=== PATIENT | male | born 1950 | race Caucasian/White ===

== ENCOUNTER 2016-07-22 15:47 | Emergency (ER) | payer MEDICARE, OTHER ==
[~2016-07-22 15:47] MED LIST: Nitroglycerin 0.4 MG TAB 1 EACH ONE; Sodium Chloride 0.9% 1,000 ML BAG ONE
[2016-07-22] MEDS ORDERED: Nitroglycerin 0.4 MG TAB 1 EACH ONE (15:57)
[2016-07-22 16:12] LABS: #Basophils 0.1 thou/uL (0.0-0.2); #Eosinphils 0.3 thou/uL (0.0-0.7); #Lymphocytes 2.5 thou/uL (1.20-3.40); #Monocytes 0.5 thou/uL (0.11-0.59); #Neutrophils 3.7 thou/uL (1.40-6.50); %Basophils 1.6 % (0.0-1.0); %Eosinophils 3.6 % (0.0-10.0); %Lymphocytes 35.7 % (21.0-51.0); %Monocytes 6.7 % (0.0-10.0); %Neutrophils 52.4 % (42.0-75.0); Hemoglobin 15.7 g/dL (14.0-18.0); Mean Corpuscular HGB CONC 34.7 g/dL (32.0-36.0); Mean Corpuscular Hemoglobin 30.4 pg (27.0-31.0); Mean Corpuscular Volume 87.6 fl (80.0-94.0); Mean Platelet Volume 6.9 fL (7.4-10.4); Platelet Count 205 thou/uL (130-400); RBC Distribution Width 12.8 % (11.5-14.5); Red Blood Cell (RBC) Count 5.17 mill/uL (4.70-6.10)
[2016-07-22 16:27] LABS: ALT (SGPT) 32 U/L (0-55); AST (SGOT) 35 U/L (5-34); Albumin 4.1 g/dL (3.4-4.8); Alkaline Phosphatase 41 U/L (40-150); Anion Gap 17 mmol/L (10-20); BUN (Urea Nitrogen) 15 mg/dL (8.4-25.7); Bilirubin, Total 0.4 mg/dL (0.2-1.2); Calc. Creatinine Clearance 0 mL/min (70-130); Calcium 9.8 mg/dL (7.8-10.44); Carbon Dioxide 21 mmol/L (23-31); Chloride 100 mmol/L (98-107); Estimated GFR-MDRD 59; Globulin 2.6 g/dL (2.4-3.5); Glucose 311 mg/dL (80-115); Potassium 4.4 mmol/L (3.5-5.1); Protein, Total 6.7 g/dL (5.8-8.1); Sodium 134 mmol/L (136-145)
[2016-07-22 16:39] LABS: Troponin I Less than 0.010 ng/mL (< 0.028)
--- NOTE | 2016-07-22 16:40 | RAD ---
PORTABLE AP CHEST: Date: 07-22-16 History: Chest pain. Comparison: 10-27-14 FINDINGS: Double lead left subclavian cardiac pacemaking device remains place. Cardiac silhouette is magnifie d by projection. Pulmonary vasculature is within normal limits. The lungs are clear. There has be en no interval change from the prior exam. Remote left sided rib fracture present. IMPRESSION: No acute cardiopulmonary process. POS: [facility]
--- NOTE | 2016-07-22 17:50 | ERRECORD ---
[facility] EMERGENCY RECORD HPI CHEST PAIN (16:10 LHOD) CHIEF COMPLAINT: Patient presents for evaluation of chest pain, ongoing. HISTORIAN: History provided by patient. LOCATION: Symptoms are localized, most severe in substernal area. QUALITY: Pain is dull in nature, described as pressure-like, described as throbbing. SEVERITY: Maximum severity of symptoms severe, Currently symptoms are severe, Maximum severity of pain rated as 10/10, Current severity of pain rated as 10/10. TIME COURSE: Gradual onset of symptoms, are constant. ASSOCIATED WITH: No associated chills, No associated cough, No associated diaphoresis, No associated fever, No associated nausea, No associated palpitations, No associated shortness of breath, No associated trauma, No associated vomiting. EXACERBATED BY: Patient's condition exacerbated by nothing. RELIEVED BY: Patient's condition relieved by nothing, Patient's condition relieved by TOOK 3 NTG WITHOUT RELIEF. RISK FACTORS: Coronary artery disease risk factors, include known coronary artery disease, include diabetes. ROS (16:18 LHOD) CONSTITUTIONAL: Historian denies chills, denies fever. CARDIOVASCULAR: Historian reports chest pain, denies diaphoresis, denies palpitations. RESPIRATORY: Historian denies cough, denies shortness of breath. GI: Historian denies abdominal pain, denies nausea, denies vomiting. MUSCULOSKELETAL: Historian denies back pain, denies neck pain. SKIN: Historian denies rash. NEUROLOGIC: Historian denies focal weakness, denies headache. HEMO/LYMPHATIC: Historian reports easy bruising, ASA Q DAY--TOOK 325 MG THIS AM. NOTES: All systems reviewed, negative except as described above. PAST MEDICAL HISTORY MEDICAL HISTORY: Past medical history includes cardiac history, coronary artery disease, Treated with stent placement, Number of stents: 6, Treated with a pacemaker, Past medical history includes history of diabetes, on insulin, Past medical history includes history of malignancy, primary site prostate, treated with surgery, Past medical history includes pulmonary disease, chronic obstructive pulmonary disease. Flu vaccine up to date, Tetanus immunization up to date, Pneumococcal vaccine up to date. Notes: CAD, Past medical history includes cardiac history, Treated with stent placement, Number of stents: 6, Treated with a pacemaker, Past &a-1R&a+25V*p+0X*[id number]*c202B*c15G*c2P*p-0X&a-25V&a+1R Name: Hesham Nuñez : 1950 M65 MedRec: [id number] AcctNum: [id number] Prepared: WedJul 22, 2016 17:58 by Interface Page 1 of 5 pMD [facility] EMERGENCY RECORD medical history includes history of diabetes, on insulin, Past medical history includes neurological disease, SPINAL CVA, Past medical history includes pulmonary disease, chronic obstructive pulmonary disease. (16:03 CJEF) MALE SURGICAL HISTORY: Surgical history of cholecystectomy, Surgical history of hernia repair, Surgical history of spinal surgery. PROSTATE CA LENS REPLACEMENT, Surgical history of cholecystectomy, Surgical history of hernia repair, Surgical history of spinal surgery. (16:03 CJEF) PSYCHIATRIC HISTORY: No previous psychiatric history. Notes: DENIES. (16:03 CJEF) SOCIAL HISTORY: Patient denies alcohol use, Patient denies drug use, Patient has no smoking history. Patient denies alcohol use, Patient denies drug use, Patient has no smoking history. (16:03 CJEF) NOTES: Nursing records reviewed, REPORTS PREVIOUS CARDIAC HX "I TWICE". LAST WAS APROX. 4-5 YEARS AGO. SEES . REPORTS WAS SUPPOSE TO SEE LAST WEEK, BUT RESCHEDULED. PT REPORTS HIS NTG MIGHT BE OLD. (16:25 LHOD) KNOWN ALLERGIES Demerol Injection: - BECOMES VERY AGGRESSIVE Iodides iodine (Unconfirmed): Reaction: Hives meperidine HCl: Reaction: Anxiety CURRENT MEDICATIONS (15:59 CJEF) PT DOES NOT HAVE MED LIST WITH HIM; STATES MEDS ARE SAME aspirin: TABLET : Strength - 325 mg : ORAL Patient Dose: 324 mg Oral once a day. lisinopril: TABLET : Strength - 10 mg : ORAL Patient Dose: once a day (in the morning). metFORMIN: TABLET : Strength - 1,000 mg : ORAL Patient Dose: 2 times a day. meTOPROLOL tartrate: TABLET : Strength - 50 mg : ORAL Patient Dose: once a day (in the morning). Requip: TABLET : Strength - 2 mg : ORAL Patient Dose: Unknown. Effient: TABLET : Strength - 10 mg : ORAL Patient Dose: Unknown. Flonase: SPRAY, SUSPENSION : Strength - 50 mcg : NASAL Patient Dose: Unknown. &a-1R&a+25V*p+0X*y1126M*c202B*c15G*c2P*p-0X&a-25V&a+1R Name: Hesham Nuñez : 1950 M65 MedRec: [id number] AcctNum: [id number] Prepared: WedJul 22, 2016 17:58 by Interface Page 2 of 5 pMD [facility] EMERGENCY RECORD [place]: TABLET, EXTENDED RELEASE 12 HR : Strength - 500 mg : ORAL Patient Dose: Unknown. ranitidine HCl: TABLET : Strength - 150 mg : ORAL Patient Dose: Unknown. Zetia: TABLET : Strength - 10 mg : ORAL Patient Dose: Unknown. nitroglycerin: TABLET, SUBLINGUAL : Strength - 0.4 mg : SUBLINGUAL Patient Dose: Unknown. VITAL SIGNS VITAL SIGNS: BP: 152/78, Pulse: 68, Resp: 20, Pain: 10, O2 sat: 95 on Room Air, Time: 07/22/2016 15:52. (15:52 CJEF) Temp: 98.6 (Tympanic), Time: 07/22/2016 15:59. (15:59 CJEF) BP: 139/79, Pulse: 61, Resp: 16, Pain: 5, O2 sat: 94 on Room Air, Time: 07/22/2016 16:06. (16:06 CJEF) BP: 101/51, Pulse: 60, Resp: 18, O2 sat: 95 on Room Air, Time: 07/22/2016 16:12. (16:12 CJEF) Pain: 2, Time: 07/22/2016 16:12. (16:12 CJEF) BP: 99/65, Pulse: 65, Resp: 16, O2 sat: 95 on Room Air, Time: 07/22/2016 16:21. (16:21 CJEF) BP: 124/66, Pulse: 61, Resp: 18, Pain: 2, O2 sat: 95 on Room Air, Time: 07/22/2016 16:30. (16:30 CJEF) BP: 121/66, Pulse: 63, Resp: 20, O2 sat: 95 on Room Air, Time: 07/22/2016 17:07. (17:07 CJEF) Temp: 98.6 (Tympanic), Time: 07/22/2016 17:15. (17:15 JPER) PHYSICAL EXAM (16:24 LHOD) CONSTITUTIONAL: Vital Signs Reviewed, Patient afebrile, Pulse normal, Blood pressure, hypertensive, Respiratory rate normal, Patient appears, in moderate pain distress, Patient alert and oriented to person, place and time. NECK: Neck exam included findings of normal range of motion, Trachea midline. RESPIRATORY CHEST: Respiratory exam included findings of no respiratory distress, Breath sounds clear. CARDIOVASCULAR: Heart rate regular rate and rhythm, Heart sounds normal. ABDOMEN MALE: Abdominal exam included findings of abdomen nontender. BACK: Back exam normal. UPPER EXTREMITY: Upper extremity exam normal. LOWER EXTREMITY: Lower extremity exam normal. NEURO: Neuro exam findings include patient oriented to person, place and time, Speech normal. SKIN: no rash. &a-1R&a+25V*p+0X*[id number]*c202B*c15G*c2P*p-0X&a-25V&a+1R Name: Hesham Nuñez : 1950 M65 MedRec: [id number] AcctNum: [id number] Prepared: WedJul 22, 2016 17:58 by Interface Page 3 of 5 pMD [facility] EMERGENCY RECORD EKG INTERPRETATION (16:26 LHOD) 12 LEAD EKG INTERPRETATION: 12 lead EKG interpreted by Emergency Department Physician at time of study, 12 lead EKG shows, paced rhythm, Rate (beats per minute): 61, with no ectopics, T waves normal, [place] normal. RADIOLOGYINTERPRETATION (16:39 LHOD) CHEST: Films of the chest show, cardiomegaly, Other findings: PACEMAKER. MEDICATION ADMINISTRATION SUMMARY Drug Name: *sodium chloride 0.9 % intravenous, Dose Ordered: 300 mL, Route: IV Fluid Infusion, Status: Given, Time: 16:33 07/22/2016, Drug Name: *Nitrostat sublingual, Dose Ordered: 1 tab(s), Route: Sublingual, Status: Held, Time: 16:13 07/22/2016, Drug Name: sodium chloride 0.9 % intravenous, Dose Ordered: 100 mL/hr, Route: IV Fluid Infusion, Status: Given, Time: 16:07 07/22/2016, Drug Name: *Nitrostat sublingual, Dose Ordered: 1 tab(s), Route: Sublingual, Status: Given, Time: 16:05 07/22/2016, Drug Name: *Nitrostat sublingual, Dose Ordered: 1 tab(s), Route: Sublingual, Status: Given, Time: 16:00 07/22/2016, *Additional information available in notes, Detailed record available in Medication Service section. DOCTOR NOTES (16:18 LHOD) TEXT: 1615--CHEST PAIN DECREASED TO 5 AFTER 1ST NTG. CHEST PAIN RESOLVED AFTER 2 NTG. I DISCUSSED WITH PT IF HE WANTED EMS TRANSFER TO [facility] FOR FURTHER EVALUATION, BUT PT DESIRED TO GO HOME AFTER GETTING SCRIPT FOR NTG AND STATES HE IS FOLLOWING UP WITH DR. WRAY. PT STABLE FOR DISCHARGED, BUT ADVISED TO CALL 911 FOR ANY FURTHER PAIN. PROBLEM LIST No recorded problems DIAGNOSIS (16:48 LHOD) FINAL: PRIMARY: ANGINA--ACUTE CORONARY SYNDROME--STABLE. PRESCRIPTION (16:49 LHOD) Nitrostat sublingual: TABLET, SUBLINGUAL : 0.4 mg : SUBLINGUAL : Quantity: 1 Unit: Sublingual Route: SUBLINGUAL Schedule: As Needed Dispense: 1 May substitute. Refills: No Refills . NOTES: No Refills. DISPOSITION PATIENT: Disposition Type: Discharge, Disposition: *Discharge &a-1R&a+25V*p+0X*q8393M*c202B*c15G*c2P*p-0X&a-25V&a+1R Name: Hesham Nuñez : 1950 M65 MedRec: [id number] AcctNum: [id number] Prepared: WedJul 22, 2016 17:58 by Interface Page 4 of 5 pMD [facility] EMERGENCY RECORD Home, Condition: Good. (16:48 LHOD) Patient left the department. (17:39 JPSTEPHANIE) [place]enton: DANII=TEDDY Greene, Lydia GOMEZ=TEDDY Akins, Paula LHOD=MD Evonne, Mulugeta &a-1R&a+25V*p+0X*[id number]*c202B*c15G*c2P*p-0X&a-25V&a+1R Name: Hesham Nuñez : 1950 M65 MedRec: [id number] AcctNum: [id number] Prepared: Cristopher Jul 22, 2016 17:58 by Interface Page 5 of 5 pMD MTDD
--- NOTE | 2016-07-22 17:59 | PICIS ---
[facility] EMERGENCY RECORD TRIAGE (15:52 CJEF) TRIAGE NOTES: CHEST PAIN AND SOB. (15:52 CJEF) PATIENT: NAME: Hesham Nuñez, AGE: 65, GENDER: male, : Wed1950, TIME OF GREET: WedJul 22, 2016 15:48, PREFERRED LANGUAGE: Chadian, ETHNICITY: Not or , ECODE BILLING MAP: [facility], SSN: [id number], Zip Code: [address], KG WEIGHT: [phone], PHONE: , , , PERSON ID: [id number], PCP: Cuate MANZO KERRY. (15:52 CJEF) COMPLAINT: HIGH RISK COMPLAINT: CHEST PAIN. (15:52 CJEF) ADMISSION: URGENCY: 2 Emergent, ADMISSION SOURCE: Home, TRANSPORT: Walk-in, BED: TRIAGE. 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 PT REPORTS HE TOOK X3 NITRO WITH NO IMPROVEMENT TO CHEST PAIN. PT REPORTS PAIN IS MID STERNAL AND RADIATES TO BILATERAL ARMS AND BACK. PT REPROTS THAT HE DID HAVE A SYNCOPAL EPISODE. PT ALSO REPORTS SOB. PT APPEARS VERY ANXIOUS. PT ALSO TAKES 324MG OF NITRO DAILY AND DID TAKE DAILY DOSE TODAY. (16:03 CJEF) PAIN: Patient complains of pain described as, Location MIDSTERNAL CHEST PAIN THAT RADIATES TO BILATERAL ARMS AND BACK. (16:03 CJEF) IMMUNIZATIONS: Flu vaccine up to date, Tetanus immunization up to date, Pneumococcal vaccine up to date. (16:03 CJEF) SIRS SCORING: Heart Rate 55-109 (0), Temp range 96.8-101.1 (0), respiratory rate 12-24 (0), Mental Status altered: no (0), Infection or Suspected Infection: No. (16:03 CJEF) TRIAGE SCREENING: Patient denies suicidal ideation, Patient denies presence of domestic violence. (16:03 CJEF) PROVIDERS: TRIAGE NURSE: Lydia Greene RN. (15:52 CJEF) VITAL SIGNS: BP 152/78, Pulse 68, Resp 20, Pain 10, O2 Sat 95, on Room Air, Time 07/22/2016 15:52. (15:52 CJEF) Temp 98.6, (Tympanic), Time 07/22/2016 15:59. (15:59 CJEF) PREVIOUS VISIT ALLERGIES: Demerol Injection, Iodides. (15:52 CJEF) Demerol Injection, Iodides. (16:03 CJEF) KNOWN ALLERGIES Demerol Injection: - BECOMES VERY AGGRESSIVE Iodides iodine (Unconfirmed): Reaction: Hives meperidine HCl: Reaction: Anxiety CURRENT MEDICATIONS (15:59 CJEF) PT DOES NOT HAVE MED LIST WITH HIM; STATES MEDS ARE SAME aspirin: TABLET : Strength - 325 mg : ORAL Patient Dose: 324 mg Oral once a day. lisinopril: TABLET : Strength - 10 mg : ORAL Patient Dose: once a day (in the morning). &a-1R&a+25V*p+0X*a9339Q*c202B*c15G*c2P*p-0X&a-25V&a+1R Name: Hesham Nuñez : 1950 M65 MedRec: [id number] AcctNum: [id number] Prepared: WedJul 22, 2016 18:05 by Interface Page 1 of 14 pMD [facility] EMERGENCY RECORD metFORMIN: TABLET : Strength - 1,000 mg : ORAL Patient Dose: 2 times a day. meTOPROLOL tartrate: TABLET : Strength - 50 mg : ORAL Patient Dose: once a day (in the morning). Requip: TABLET : Strength - 2 mg : ORAL Patient Dose: Unknown. Effient: TABLET : Strength - 10 mg : ORAL Patient Dose: Unknown. Flonase: SPRAY, SUSPENSION : Strength - 50 mcg : NASAL Patient Dose: Unknown. Ranexa: TABLET, EXTENDED RELEASE 12 HR : Strength - 500 mg : ORAL Patient Dose: Unknown. ranitidine HCl: TABLET : Strength - 150 mg : ORAL Patient Dose: Unknown. Zetia: TABLET : Strength - 10 mg : ORAL Patient Dose: Unknown. nitroglycerin: TABLET, SUBLINGUAL : Strength - 0.4 mg : SUBLINGUAL Patient Dose: Unknown. VITAL SIGNS VITAL SIGNS: BP: 152/78, Pulse: 68, Resp: 20, Pain: 10, O2 sat: 95 on Room Air, Time: 07/22/2016 15:52. (15:52 CJEF) Temp: 98.6 (Tympanic), Time: 07/22/2016 15:59. (15:59 CJEF) BP: 139/79, Pulse: 61, Resp: 16, Pain: 5, O2 sat: 94 on Room Air, Time: 07/22/2016 16:06. (16:06 CJEF) BP: 101/51, Pulse: 60, Resp: 18, O2 sat: 95 on Room Air, Time: 07/22/2016 16:12. (16:12 CJEF) Pain: 2, Time: 07/22/2016 16:12. (16:12 CJEF) BP: 99/65, Pulse: 65, Resp: 16, O2 sat: 95 on Room Air, Time: 07/22/2016 16:21. (16:21 CJEF) BP: 124/66, Pulse: 61, Resp: 18, Pain: 2, O2 sat: 95 on Room Air, Time: 07/22/2016 16:30. (16:30 CJEF) BP: 121/66, Pulse: 63, Resp: 20, O2 sat: 95 on Room Air, Time: 07/22/2016 17:07. (17:07 CJEF) Temp: 98.6 (Tympanic), Time: 07/22/2016 17:15. (17:15 ER) NURSING ASSESSMENT: CARDIOVASCULAR (15:52 CJEF) CONSTITUTIONAL: Complex assessment performed, Patient arrives ambulatory, Gait steady, History obtained from patient, Patient appears, anxious, Patient cooperative, Patient alert, Oriented to person, place and time, Skin warm, Skin dry, Skin normal &a-1R&a+25V*p+0X*l2400P*c202B*c15G*c2P*p-0X&a-25V&a+1R Name: Hesham Nuñez : 1950 M65 MedRec: [id number] AcctNum: [id number] Prepared: WedJul 22, 2016 18:05 by Interface Page 2 of 14 pMD 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 PT REPORTS HE TOOK X3 NITRO WITH NO IMPROVEMENT TO CHEST PAIN. PT REPORTS PAIN IS MID STERNAL AND RADIATES TO BILATERAL ARMS AND BACK. PT REPROTS THAT HE DID HAVE A SYNCOPAL EPISODE. PT ALSO REPORTS SOB. PT APPEARS VERY ANXIOUS. PT ALSO TAKES 324MG OF NITRO DAILY AND DID TAKE DAILY DOSE TODAY. PAIN: aching pain, midsternal, to the left arm, to the right arm, to the posterior chest, on a scale 0-10 patient rates pain as 10. CARDIOVASCULAR: Cardiovascular assessment findings include heart rate normal, Heart rhythm, paced, Heart sounds normal, Associated with diaphoresis, Associated with dyspnea, with exertion, with position change, Associated with, syncopal event. RESPIRATORY/CHEST: Breath sounds clear, Respiratory assessment findings include respiratory effort, tachypneic, Respirations regular, Converses, in short phrases, Neck and chest exam findings include trachea midline, Chest expansion equal, Chest movement symmetrical, no signs of distress. NOTES: Patient tolerated procedure well. SAFETY: Side rails up, Cart/Stretcher in lowest position, Family at bedside, Call light within reach, Hospital ID band on. NURSING ASSESSMENT: FALL RISK (16:08 [facility]) FALL RISK: Fall risk assessment findings include: no history of falls (0), No bed rest greater than 2 days (0), No use of level of consciousness altering agents with mentation or cognitive changes (0), No change in blood pressure (0), Sensory deficits (1), Impaired mobility (3), No neurologic diagnosis (0), No elimination problems (0), No confusion (0), Total score 4, No risk for fall. HENDRICH II FALL RISK: Hendrich II Fall Risk assessment findings include patient not confused, disoriented or impulsive, not symptomatic or depressed, no altered elimination, no dizziness or vertigo, male(1), no antiepileptics (anticonvulsants) administered, no Benzodiazepines administered, Multiple attempts, but successful(3), Total score 4, Score less than 5. Patient not high risk for falls. NURSING ASSESSMENT: SKIN (16:08 [facility]) SKIN: Skin assessment findings include skin warm, Skin dry, Skin normal in color. MICHELLE SCALE: (4) Sensory perception has no impairment, (4) Skin is rarely moist, (3) Patient walks occasionally, (3) Slightly limited mobility, (3) Adequate nutrition, (3) Patient has no apparent problem moving, Michelle Risk Total: 20. NOTES: Patient tolerated procedure well. &a-1R&a+25V*p+0X*z1331S*c202B*c15G*c2P*p-0X&a-25V&a+1R Name: Hesham Nuñez : 1950 M65 MedRec: [id number] AcctNum: [id number] Prepared: WedJul 22, 2016 18:05 by Interface Page 3 of 14 D [facility] EMERGENCY RECORD SAFETY: Side rails up, Cart/Stretcher in lowest position, Family at bedside, Call light within reach, Hospital ID band on. NURSING PROCEDURE: BEDSIDE RADIOLOGY (16:14 CJ) PATIENT IDENTIFIER: Patient actively involved in identification process, Patient's identity verified by patient stating name, Patient's identity verified by patient stating date. BEDSIDE RADIOLOGY: Portable chest x-ray performed. NOTES: Patient tolerated procedure well. SAFETY: Side rails up, Cart/Stretcher in lowest position, Family at bedside, Call light within reach, Hospital ID band on. NURSING PROCEDURE: BEDSIDE SIRS TESTING (16:36 CJ) SCORES: Heart Rate 55-109 (0), Temp range 96.8-101.1 (0), respiratory rate 12-24 (0), Latest WBC 3-14.9 (0), Mental Status altered: no (0), Infection or Suspected Infection: No. NURSING PROCEDURE: SWITCH ADJUSTER (15:52 CJEF) PATIENT IDENTIFIER: Patient actively involved in identification process, Patient's identity verified by patient stating name, Patient's identity verified by patient stating date. SWITCH ADJUSTER: Cardiac monitoring indicated for complaint of chest pain, Patient placed on cardiac technologist, Heart rate: 62, showing paced rhythm, Patient placed on non-invasive blood pressure monitor, Patient placed on continuous pulse oximetry, Adult/pediatric oxisensor applied. FOLLOW-UP: After procedure, alarms set and on, After procedure, patient tolerating monitoring. NOTES: Patient tolerated procedure well. SAFETY: Side rails up, Cart/Stretcher in lowest position, Family at bedside, Call light within reach, Hospital ID band on. NURSING PROCEDURE: DISCHARGE NOTE (17:15 [facility]) DISCHARGE: Patient discharged to home, ambulating without assistance, family driving, accompanied by //partner, Summary of Care printed/ provided, Patient requested and was provided an electronic copy of Discharge Instructions, Transition record given to patient, Discharge instructions given to patient, Prescriptions given and instructions on side effects given, Above person(s) verbalized understanding of discharge instructions and follow-up care, Patient treated and evaluated by physician. BELONGINGS: Belongings remain with patient, Valuables remain with patient. NOTES: Emotional support needed and given. NURSING PROCEDURE: EKG CHART (15:56 CJ) PATIENT IDENTIFIER: Patient actively involved in identification process, Patient's identity verified by patient stating name, Patient's identity verified by patient stating date. EKG: EKG indicated for complaint of chest pain, 12 lead EKG &a-1R&a+25V*p+0X*v0749H*c202B*c15G*c2P*p-0X&a-25V&a+1R Name: Hesham Nuñez : 1950 M65 MedRec: [id number] AcctNum: [id number] Prepared: WedJul 22, 2016 18:05 by Interface Page 4 of 14 D [facility] EMERGENCY RECORD performed on the left chest, first EKG. FOLLOW-UP: After procedure, EKG for interpretation given to Dr. DOUGLASS. NOTES: Patient tolerated procedure well. SAFETY: Side rails up, Cart/Stretcher in lowest position, Family at bedside, Call light within reach, Hospital ID band on. NURSING PROCEDURE: IV (16:03 [facility]) PATIENT IDENITIFIER: Patient actively involved in identification process, Patient's identity verified by patient stating name, Patient's identity verified by patient stating date. IV SITE 1: IV therapy indicated for hydration, IV therapy indicated for medication administration, IV established, to the left antecubital, using a 20 gauge catheter, in one attempt, IV site prepped with CHLORAPREP, Saline lock established, Flushed with normal saline (mls): 10, Labs drawn at time of placement, labeled in the presence of the patient and sent to lab. FOLLOW-UP SITE 1: After procedure, sterile transparent dressing applied. NOTES: Patient tolerated procedure well, Procedure done by PAULA ESPINAL. SAFETY: Side rails up, Cart/Stretcher in lowest position, Family at bedside, Call light within reach, Hospital ID band on. NURSING PROCEDURE: NURSE NOTES (16:15 CJ) NURSES NOTES: Patient in no apparent distress, Patient states decreased pain, Patient resting quietly, Notes: PT RESTING IN BED QUIETLY WITH FAMILY AT BEDSIDE. NO DISTRESS NOTED. THE THIRD DOSE OF NITRO HELD DUE TO PTS BP DECREASED TO 101/51. PT REPORTS PAIN OF 2/10 AT THIS TIME. NURSING PROCEDURE: OXYGEN THERAPY (16:00 JPER) PATIENT IDENTIFIER: Patient's identity verified by patient stating name, Patient's identity verified by hospital ID bracelet. OXYGEN THERAPY: Oxygen therapy indicated for chest pain, Oxygen saturation 94%, by adult/pediatric oxisensor, single pulse oximetry reading, 2L oxygen given, via nasal cannula applied, Applied by FATOU ESPINAL. NOTES: Emotional support needed and given. ORDER DETAILS Order Name: SWITCH ADJUSTER ED, Status: Done, Time: 16:06 07/22/2016, User: DANII, - Ordered for: MD Douglass Lefayne, - Entered by: MD Douglass Lefayne - WedJul 22, 2016 16:03, - Quantity: 1, Order Name: Cardiac Profile w/CKMB & Troponin - I, Status: Active, Time: 16:03 07/22/2016, User: FELICITY, - Ordered for: MD Douglass Lefayne, &a-1R&a+25V*p+0X*f6298G*c202B*c15G*c2P*p-0X&a-25V&a+1R Name: Hesham Nuñez : 1950 M65 MedRec: [id number] AcctNum: [id number] Prepared: WedJul 22, 2016 18:05 by Interface Page 5 of 14 D [facility] EMERGENCY RECORD - Entered by: MD Douglass Lefayne - WedJul 22, 2016 16:03, - Quantity: 1, Order Name: CBC with Differential, Status: Active, Time: 16:03 07/22/2016, User: FELICITY, - Ordered for: MD Douglass Lefayne, - Entered by: MD Douglass Lefayne - WedJul 22, 2016 16:03, - Quantity: 1, Order Name: Comprehensive Metabolic Panel, Status: Active, Time: 16:03 07/22/2016, User: FELICITY, - Ordered for: MD Douglass Lefayne, - Entered by: MD Douglass Lefayne - [facility] Jul 22, 2016 16:03, - Quantity: 1, Order Name: D-Dimer (Quantitative), Status: Active, Time: 16:03 07/22/2016, User: FELICITY, - Ordered for: MD Douglass Lefayne, - Entered by: MD Douglass Lefayne - [facility] Jul 22, 2016 16:03, - Quantity: 1, Order Name: EKG 12 Lead in Emergency Room, Status: Active, Time: 16:03 07/22/2016, User: FELICITY, - Ordered for: MD Douglass Lefayne, - Entered by: MD Douglass Lefayne - [facility] Jul 22, 2016 16:03, - Quantity: 1, Order Name: ERRT Oxygen Usage ER, Status: Active, Time: 16:14 07/22/2016, User: DANII, - Ordered for: MD Douglass Lefayne, - Entered by: TEDDY Greene, [facility] Jul 22, 2016 16:14, - Quantity: 1, Order Name: SALINE LOCK, Status: Done, Time: 16:06 07/22/2016, User: DANII, - Ordered for: MD Douglass Lefayne, - Entered by: MD Douglass Lefayne - [facility] Jul 22, 2016 16:03, - Quantity: 1, Order Name: XR Chest 1 View Portable, Status: Active, Time: 16:03 07/22/2016, User: FELICITY, - Ordered for: MD Douglass Lefayne, - Entered by: MD Douglass Lefayne - [facility] Jul 22, 2016 16:03, - Quantity: 1. MEDICATION ADMINISTRATION SUMMARY Drug Name: *sodium chloride 0.9 % intravenous, Dose Ordered: 300 mL, Route: IV Fluid Infusion, Status: Given, Time: 16:33 07/22/2016, Drug Name: *Nitrostat sublingual, Dose Ordered: 1 tab(s), Route: Sublingual, Status: Held, Time: 16:13 07/22/2016, Drug Name: sodium chloride 0.9 % intravenous, Dose Ordered: 100 mL/hr, Route: IV Fluid Infusion, Status: Given, Time: 16:07 07/22/2016, Drug Name: *Nitrostat sublingual, Dose Ordered: 1 tab(s), Route: Sublingual, Status: Given, Time: 16:05 07/22/2016, Drug Name: *Nitrostat sublingual, Dose Ordered: 1 tab(s), Route: &a-1R&a+25V*p+0X*f0060Q*c202B*c15G*c2P*p-0X&a-25V&a+1R Name: Hesham Nuñez : 1950 M65 MedRec: [id number] AcctNum: [id number] Prepared: WedJul 22, 2016 18:05 by Interface Page 6 of 14 pMD [facility] EMERGENCY RECORD Sublingual, Status: Given, Time: 16:00 07/22/2016, *Additional information available in notes, Detailed record available in Medication Service section. MEDICATION SERVICE Nitrostat sublingual: Order: Nitrostat sublingual (nitroglycerin) - Dose: 1 tab(s) : Sublingual Schedule: Every 5 minutes Notes: X 3 DOSES OF SSYSTOLIC BP ABOVE 105 Ordered by: Mulugeta Douglass MD Entered by: Paula Akins RN WedJul 22, 2016 16:03 Documented as given by: Paula Akins RN WedJul 22, 2016 16:00 Patient, Medication, Dose, Route and Time verified prior to administration. Amount given: 0.4MG, Site: Medication administered P.O., Correct patient, time, route, dose and medication confirmed prior to administration, Patient advised of actions and side-effects prior to administration, Allergies confirmed and medications reviewed prior to administration, Administered by FATOU ESPINAL, Patient in position of comfort, Side rails up, Cart in lowest position, Family at bedside. Nitrostat sublingual: Order: Nitrostat sublingual (nitroglycerin) - Dose: 1 tab(s) : Sublingual Schedule: Every 5 minutes Notes: X 3 DOSES OF SSYSTOLIC BP ABOVE 105 Ordered by: Mulugeta Douglass MD Entered by: Paula Akins RN WedJul 22, 2016 16:06 Documented as given by: Paula Akins RN WedJul 22, 2016 16:05 Patient, Medication, Dose, Route and Time verified prior to administration. Amount given: 0.4MG, Site: Medication administered S.L., Correct patient, time, route, dose and medication confirmed prior to administration, Patient advised of actions and side-effects prior to administration, Allergies confirmed and medications reviewed prior to administration, Administered by FATOU ESPINAL, Patient in position of comfort, Side rails up, Cart in lowest position, Family at bedside. Nitrostat sublingual: Order: Nitrostat sublingual (nitroglycerin) - Dose: 1 tab(s) : Sublingual Schedule: Every 5 minutes Notes: X 3 DOSES OF SSYSTOLIC BP ABOVE 105 Ordered by: Mulugeta Douglass MD Entered by: Lydia Greene RN WedJul 22, 2016 16:13 , Held by: Lydia Greene RN WedJul 22, 2016 16:13 Reason: Vital signs out of range:BP OF 101/51. sodium chloride 0.9 % intravenous: Order: sodium chloride 0.9 % intravenous (0.9 % sodium chloride) - Dose: 100 mL/hr : IV Fluid Infusion Ordered by: Mulugeta Douglass MD Entered by: Mulugeta Douglass MD WedJul 22, 2016 16:04 Documented as given by: Paula Akins RN WedJul 22, 2016 16:07 Patient, Medication, Dose, Route and Time verified prior to &a-1R&a+25V*p+0X*v3128I*c202B*c15G*c2P*p-0X&a-25V&a+1R Name: Hesham Nuñez : 1950 M65 MedRec: [id number] AcctNum: [id number] Prepared: WedJul 22, 2016 18:05 by Interface Page 7 of 14 pMD [facility] EMERGENCY RECORD administration. Amount given: 1000ML, IV SITE #1 IV fluids established for hydration, IV SITE #1 into left antecubital, IV SITE #1 1st bag hung, amount 1 Liter hung, IV SITE #1 Rate of infusion (non-bolus) Infusing at 100 ml/hr, via primary tubing, IV SITE #1 on IV pump, Catheter placement confirmed via flush prior to administration, IV site without signs or symptoms of infiltration during medication administration, No swelling during administration, No drainage during administration, IV flushed after administration, Correct patient, time, route, dose and medication confirmed prior to administration, Patient advised of actions and side-effects prior to administration, Allergies confirmed and medications reviewed prior to administration, Administered by FATOU ESPINAL. : Follow Up : _IV SITE #1:_, IV fluid infusion discontinued, on WedJul 22, 2016 17:15, Total fluid hydration time IV site 1 1 hour, 10 minutes, ., Total amount infused: 400, IV Discontinued with catheter intact. (17:38 JPER) sodium chloride 0.9 % intravenous: Order: sodium chloride 0.9 % intravenous (0.9 % sodium chloride) - Dose: 300 mL : IV Fluid Infusion Notes: BOLUS Ordered by: Mulugeta Douglass MD Entered by: Mulugeta Douglass MD WedJul 22, 2016 16:31 Documented as given by: Paula Akins RN WedJul 22, 2016 16:33 Patient, Medication, Dose, Route and Time verified prior to administration. Amount given: 300ML, IV SITE #1 IV fluids established for hydration, IV SITE #1 bolus of 300 ml established, IV SITE #1 Rate of bolus, 1000 ml/hr, via primary tubing, IV SITE #1 on IV pump, Catheter placement confirmed via flush prior to administration, IV site without signs or symptoms of infiltration during medication administration, No swelling during administration, No drainage during administration, IV flushed after administration, Correct patient, time, route, dose and medication confirmed prior to administration, Patient advised of actions and side-effects prior to administration, Allergies confirmed and medications reviewed prior to administration, Administered by FATOU ESPINAL, Patient in position of comfort, Side rails up, Cart in lowest position, Family at bedside. : Follow Up : _IV SITE #1:_, IV fluid infusion discontinued, on WedJul 22, 2016 17:15, 45 minutes, ., Total amount infused: 400, IV Discontinued with catheter intact. (17:35 JPER) HPI CHEST PAIN (16:10 [facility]) CHIEF COMPLAINT: Patient presents for evaluation of chest pain, ongoing. HISTORIAN: History provided by patient. LOCATION: Symptoms are localized, most severe in substernal area. QUALITY: Pain is dull in nature, described as pressure-like, described as throbbing. &a-1R&a+25V*p+0X*b2731Z*c202B*c15G*c2P*p-0X&a-25V&a+1R Name: Hesham Nuñez : 1950 M65 MedRec: [id number] AcctNum: [id number] Prepared: WedJul 22, 2016 18:05 by Interface Page 8 of 14 pMD [facility] EMERGENCY RECORD SEVERITY: Maximum severity of symptoms severe, Currently symptoms are severe, Maximum severity of pain rated as 10/10, Current severity of pain rated as 10/10. TIME COURSE: Gradual onset of symptoms, are constant. ASSOCIATED WITH: No associated chills, No associated cough, No associated diaphoresis, No associated fever, No associated nausea, No associated palpitations, No associated shortness of breath, No associated trauma, No associated vomiting. EXACERBATED BY: Patient's condition exacerbated by nothing. RELIEVED BY: Patient's condition relieved by nothing, Patient's condition relieved by TOOK 3 NTG WITHOUT RELIEF. RISK FACTORS: Coronary artery disease risk factors, include known coronary artery disease, include diabetes. ROS (16:18 LHOD) CONSTITUTIONAL: Historian denies chills, denies fever. CARDIOVASCULAR: Historian reports chest pain, denies diaphoresis, denies palpitations. RESPIRATORY: Historian denies cough, denies shortness of breath. GI: Historian denies abdominal pain, denies nausea, denies vomiting. MUSCULOSKELETAL: Historian denies back pain, denies neck pain. SKIN: Historian denies rash. NEUROLOGIC: Historian denies focal weakness, denies headache. HEMO/LYMPHATIC: Historian reports easy bruising, ASA Q DAY--TOOK 325 MG THIS AM. NOTES: All systems reviewed, negative except as described above. PAST MEDICAL HISTORY MEDICAL HISTORY: Past medical history includes cardiac history, coronary artery disease, Treated with stent placement, Number of stents: 6, Treated with a pacemaker, Past medical history includes history of diabetes, on insulin, Past medical history includes history of malignancy, primary site prostate, treated with surgery, Past medical history includes pulmonary disease, chronic obstructive pulmonary disease. Flu vaccine up to date, Tetanus immunization up to date, Pneumococcal vaccine up to date. Notes: CAD, Past medical history includes cardiac history, Treated with stent placement, Number of stents: 6, Treated with a pacemaker, Past medical history includes history of diabetes, on insulin, Past medical history includes neurological disease, SPINAL CVA, Past medical history includes pulmonary disease, chronic obstructive pulmonary disease. (16:03 CJEF) MALE SURGICAL HISTORY: Surgical history of cholecystectomy, Surgical history of hernia repair, Surgical history of spinal surgery. PROSTATE CA LENS REPLACEMENT, Surgical history of cholecystectomy, Surgical &a-1R&a+25V*p+0X*r9605G*c202B*c15G*c2P*p-0X&a-25V&a+1R Name: Hesham Nuñez : 1950 M65 MedRec: [id number] AcctNum: [id number] Prepared: WedJul 22, 2016 18:05 by Interface Page 9 of 14 pMD [facility] EMERGENCY RECORD history of hernia repair, Surgical history of spinal surgery. (16:03 CJEF) PSYCHIATRIC HISTORY: No previous psychiatric history. Notes: DENIES. (16:03 CJEF) SOCIAL HISTORY: Patient denies alcohol use, Patient denies drug use, Patient has no smoking history. Patient denies alcohol use, Patient denies drug use, Patient has no smoking history. (16:03 CJEF) NOTES: Nursing records reviewed, REPORTS PREVIOUS CARDIAC HX "I TWICE". LAST WAS APROX. 4-5 YEARS AGO. SEES . REPORTS WAS SUPPOSE TO SEE LAST WEEK, BUT RESCHEDULED. PT REPORTS HIS NTG MIGHT BE OLD. (16:25 LHOD) PHYSICAL EXAM (16:24 [facility]) CONSTITUTIONAL: Vital Signs Reviewed, Patient afebrile, Pulse normal, Blood pressure, hypertensive, Respiratory rate normal, Patient appears, in moderate pain distress, Patient alert and oriented to person, place and time. NECK: Neck exam included findings of normal range of motion, Trachea midline. RESPIRATORY CHEST: Respiratory exam included findings of no respiratory distress, Breath sounds clear. CARDIOVASCULAR: Heart rate regular rate and rhythm, Heart sounds normal. ABDOMEN MALE: Abdominal exam included findings of abdomen nontender. BACK: Back exam normal. UPPER EXTREMITY: Upper extremity exam normal. LOWER EXTREMITY: Lower extremity exam normal. NEURO: Neuro exam findings include patient oriented to person, place and time, Speech normal. SKIN: no rash. LAB INTERPRETATION (16:29 LHOD) INTERPRETATION: I reviewed the lab results, CBC normal, Chemistry abnormal, Sodium decreased, Glucose elevated, Bicarbonate decreased, Cardiac enzymes normal, D-dimer negative. EVENTS TRANSFER: Triage to Emergency Triage. (WedJul 22, 2016 15:52 CJ[facility]) Emergency Triage to Main ED -05. (15:52 [facility]) Removed from Emergency Main ED -05. (17:39 JPER) RADIOLOGYINTERPRETATION (16:39 LHOD) CHEST: Films of the chest show, cardiomegaly, Other findings: PACEMAKER. EKG INTERPRETATION (16:26 LHOD) &a-1R&a+25V*p+0X*t3701K*c202B*c15G*c2P*p-0X&a-25V&a+1R Name: Hesham Nuñez : 1950 M65 MedRec: [id number] AcctNum: [id number] Prepared: WedJul 22, 2016 18:05 by Interface Page 10 of 14 pMD [facility] EMERGENCY RECORD 12 LEAD EKG INTERPRETATION: 12 lead EKG interpreted by Emergency Department Physician at time of study, 12 lead EKG shows, paced rhythm, Rate (beats per minute): 61, with no ectopics, T waves normal, [place] normal. DOCTOR NOTES (16:18 LHOD) TEXT: 1615--CHEST PAIN DECREASED TO 5 AFTER 1ST NTG. CHEST PAIN RESOLVED AFTER 2 NTG. I DISCUSSED WITH PT IF HE WANTED EMS TRANSFER TO [facility] FOR FURTHER EVALUATION, BUT PT DESIRED TO GO HOME AFTER GETTING SCRIPT FOR NTG AND STATES HE IS FOLLOWING UP WITH DR. ELIZABETH. PT STABLE FOR DISCHARGED, BUT ADVISED TO CALL 911 FOR ANY FURTHER PAIN. PROBLEM LIST No recorded problems DIAGNOSIS (16:48 LHOD) FINAL: PRIMARY: ANGINA--ACUTE CORONARY SYNDROME--STABLE. DISPOSITION PATIENT: Disposition Type: Discharge, Disposition: *Discharge Home, Condition: Good. (16:48 LHOD) Patient left the department. (17:39 JPER) INSTRUCTION (16:50 LHOD) DISCHARGE: ANGINA. FOLLOWUP: Cuate MANZO, JACEK, Obstetrics and Gynecology, [address] [facility] [address], [phone], Cuate Elizabeth, Nate, Cardiology, [address] [address], , Follow up with Specialist as soon as possible. SPECIAL: FOR ANY FURTHER PAIN OR PRESSURE, CALL 911 OR RETURN. PRESCRIPTION (16:49 LHOD) Nitrostat sublingual: TABLET, SUBLINGUAL : 0.4 mg : SUBLINGUAL : Quantity: 1 Unit: Sublingual Route: SUBLINGUAL Schedule: As Needed Dispense: 1 May substitute. Refills: No Refills . NOTES: No Refills. IMAGING *DISCHARGE INSTRUCTIONS RECEIPT: Image captured from scanner. (17:16 JPER) *SUPPLY CHARGE SHEET: Image captured from scanner. (17:17 JPER) ADMIN DIGITAL SIGNATURE: TEDDY Akins, Paula. (17:39 JPER) MD Evonne, Mulugeta. (17:53 LHOD) RESULTS &a-1R&a+25V*p+0X*n5045L*c202B*c15G*c2P*p-0X&a-25V&a+1R Name: Hesham Nuñez : 1950 M65 MedRec: [id number] AcctNum: [id number] Prepared: WedJul 22, 2016 18:05 by Interface Page 11 of 14 pMD [facility] EMERGENCY RECORD RADIOLOGY: XR Chest 1 View Portable Observe DT: WedJul 22, 2016 16:05, CXRP PORTABLE AP CHEST: Date: 07-22-16 History: Chest pain. Comparison: 10-27-14 FINDINGS: Double lead left subclavian cardiac pacemaking device remains place. Cardiac silhouette is magnifie d by projection. Pulmonary vasculature is within normal limits. The lungs are clear. There has be en no interval change from the prior exam. Remote left sided rib fracture present. IMPRESSION: No acute cardiopulmonary process. POS: [facility] . (16:47 LHOD) LABORATORY: CBC with Differential Collection DT: WedJul 22, 2016 16:10, White Blood Cell (WBC) Count 7.0 thou/uL, Range (4.8-10.8), Red Blood Cell (RBC) Count 5.17 mill/uL, Range (4.70-6.10), Hemoglobin 15.7 g/dL, Range (14.0-18.0), Hematocrit 45.3 %, Range (42.0-52.0), Mean Corpuscular Volume 87.6 fl, Range (80.0-94.0), Mean Corpuscular Hemoglobin 30.4 pg, Range (27.0-31.0), Mean Corpuscular HGB CONC 34.7 g/dL, Range (32.0-36.0), RBC Distribution Width 12.8 %, Range (11.5-14.5), Platelet Count 205 thou/uL, Range (130-400), *Mean Platelet Volume 6.9 - L fL, Range (7.4-10.4), %Neutrophils 52.4 %, Range (42.0-75.0), %Lymphocytes 35.7 %, Range (21.0-51.0), %Monocytes 6.7 %, Range (0.0-10.0), %Eosinophils 3.6 %, Range (0.0-10.0), *%Basophils 1.6 - H %, Range (0.0-1.0), #Neutrophils 3.7 thou/uL, Range (1.40-6.50), #Lymphocytes 2.5 thou/uL, Range (1.20-3.40), #Monocytes 0.5 thou/uL, Range (0.11-0.59), #Eosinphils 0.3 thou/uL, Range (0.0-0.7), #Basophils 0.1 thou/uL, Range (0.0-0.2). (16:17 LHOD) CBC with Differential Collection DT: WedJul 22, 2016 16:10, White Blood Cell (WBC) Count 7.0 thou/uL, Range (4.8-10.8), Red Blood Cell (RBC) Count 5.17 mill/uL, Range (4.70-6.10), Hemoglobin 15.7 g/dL, Range (14.0-18.0), &a-1R&a+25V*p+0X*y2990O*c202B*c15G*c2P*p-0X&a-25V&a+1R Name: Hesham Nuñez : 1950 M65 MedRec: [id number] AcctNum: [id number] Prepared: WedJul 22, 2016 18:05 by Interface Page 12 of 14 pMD [facility] EMERGENCY RECORD Hematocrit 45.3 %, Range (42.0-52.0), Mean Corpuscular Volume 87.6 fl, Range (80.0-94.0), Mean Corpuscular Hemoglobin 30.4 pg, Range (27.0-31.0), Mean Corpuscular HGB CONC 34.7 g/dL, Range (32.0-36.0), RBC Distribution Width 12.8 %, Range (11.5-14.5), Platelet Count 205 thou/uL, Range (130-400), *Mean Platelet Volume 6.9 - L fL, Range (7.4-10.4), %Neutrophils 52.4 %, Range (42.0-75.0), %Lymphocytes 35.7 %, Range (21.0-51.0), %Monocytes 6.7 %, Range (0.0-10.0), %Eosinophils 3.6 %, Range (0.0-10.0), *%Basophils 1.6 - H %, Range (0.0-1.0), #Neutrophils 3.7 thou/uL, Range (1.40-6.50), #Lymphocytes 2.5 thou/uL, Range (1.20-3.40), #Monocytes 0.5 thou/uL, Range (0.11-0.59), #Eosinphils 0.3 thou/uL, Range (0.0-0.7), #Basophils 0.1 thou/uL, Range (0.0-0.2). (16:24 [facility]) Comprehensive Metabolic Panel Collection DT: WedJul 22, 2016 16:10, *Sodium 134 - L mmol/L, Range (136-145), Potassium 4.4 mmol/L, Range (3.5-5.1), Chloride 100 mmol/L, Range (98-107), *Carbon Dioxide 21 - L mmol/L, Range (23-31), Anion Gap 17 mmol/L, Range (10-20), BUN (Urea Nitrogen) 15 mg/dL, Range (8.4-25.7), Creatinine 1.23 mg/dL, Range (0.7-1.3), Estimated GFR-MDRD 59 , Reference Range for Estimated GFR: Greater than 90, mL/min/1.73 m2 NOTE: The MDRD equation has not been validated for use, with the elderly (over 70 years of age), women, patients with, serious comorbid condition or persons with extremes of body size, muscle, mass, or nutritional status. , *Glucose 311 - H mg/dL, Range (80-115), Calcium 9.8 mg/dL, Range (7.8-10.44), Bilirubin, Total 0.4 mg/dL, Range (0.2-1.2), Protein, Total 6.7 g/dL, Range (5.8-8.1), NOTE: Plasma values are generally 0.3 to 0.5 g/dL higher than serum values, due to the presence of fibrinogen. , Albumin 4.1 g/dL, Range (3.4-4.8), Globulin 2.6 g/dL, Range (2.4-3.5), Alb/Glob Ratio 1.6 g/dL, Range (1.2-2.2), Alkaline Phosphatase 41 U/L, Range (40-150), *AST (SGOT) 35 - H U/L, Range (5-34), ALT (SGPT) 32 U/L, Range (0-55). (16:28 LHOD) D-Dimer (Quantitative) Collection DT: WedJul 22, 2016 16:10, *D-Dimer Test Less than 0.27 - L *mcg/mL, Range (0.27-0.43), * Reference Range Units: mcg/mL of fibrinogen equivalent, units(FEU) &a-1R&a+25V*p+0X*n2013D*c202B*c15G*c2P*p-0X&a-25V&a+1R Name: Hesham Nuñez : 1950 M65 MedRec: [id number] AcctNum: [id number] Prepared: WedJul 22, 2016 18:05 by Interface Page 13 of 14 pMD [facility] EMERGENCY RECORD Based upon a retrospective study of [facility] patients in October 2005, a result of Less than 0.44 mcg/mL FEU is, predictive of the absence of a DVT or PE. . (16:28 LHOD) Cardiac Profile w/CKMB & TropI Collection DT: WedJul 22, 2016 16:21, CKMB 4.0 ng/mL, Range (0-6.6), Troponin I Less than 0.010 ng/mL, Range (< 0.028), Reference Range , 0.00 - 0.028 ng/mL Negative 0.029 - 0.29 ng/mL , Indeterminate Greater or Equal to 0.3 ng/mL Strongly suggests DC , . (16:43 LHOD) [place]: UGOEF=TEDDY Greene, Lydia JPER=TEDDY Akins, Paula LHOD=MD Evonne, Mulugeta &a-1R&a+25V*p+0X*n0027Z*c202B*c15G*c2P*p-0X&a-25V&a+1R Name: Joaquin Hesham G : 1950 M65 MedRec: [id number] AcctNum: [id number] Prepared: WedJul 22, 2016 18:05 by Interface Page 14 of 14 pMD MTDD
== END 2016-07-22 17:15 | disposition home or self-care (01) ==
LOC: MADERS 15:47
DX: I25.119 Atherosclerotic heart disease of native coronary artery with unspecified angina pectoris (principal); E11.9 Type 2 diabetes mellitus without complications; J44.9 Chronic obstructive pulmonary disease, unspecified; Z79.82 Long term (current) use of aspirin; Z79.84 Long term (current) use of oral hypoglycemic drugs; Z79.899 Other long term (current) drug therapy
CPT/HCPCS: 36415; 71010; 80053; 82553; 84484; 85025; 85379; 93005; 96360; J7050

== ENCOUNTER 2016-08-12 08:58 | Outpatient (CLI) | payer MEDICARE, OTHER ==
[2016-08-12 09:51] LABS: ALT (SGPT) 30 U/L (0-55); AST (SGOT) 26 U/L (5-34); Albumin 4.4 g/dL (3.4-4.8); Alkaline Phosphatase 39 U/L (40-150); Anion Gap 17 mmol/L (10-20); BUN (Urea Nitrogen) 17 mg/dL (8.4-25.7); Bilirubin, Total 0.6 mg/dL (0.2-1.2); Calc. Creatinine Clearance 0 mL/min (70-130); Calcium 10.1 mg/dL (7.8-10.44); Carbon Dioxide 22 mmol/L (23-31); Cardiac Risk 3.6 (Less than 4.5); Chloride 102 mmol/L (98-107); Cholesterol 135 mg/dL (< 200 Desired); Estimated GFR-MDRD 72; Globulin 2.7 g/dL (2.4-3.5); Glucose 187 mg/dL (80-115); HDL Cholesterol 37 mg/dL (>60 Neg Risk); LDL Cholesterol, Calculated 44 mg/dL; Potassium 4.2 mmol/L (3.5-5.1); Protein, Total 7.1 g/dL (5.8-8.1); Sodium 137 mmol/L (136-145); Triglycerides 269 mg/dL (Less than 150)
== END 2016-08-12 08:59 | disposition home or self-care (01) ==
LOC: MADLAB 08:58
PROVIDERS: ATTEND Internal Medicine Cardiovascular Disease
DX: E78.00 Pure hypercholesterolemia, unspecified (principal)
CPT/HCPCS: 36415; 80053; 80061

== ENCOUNTER 2017-02-12 09:14 | Outpatient (CLI) | payer MEDICARE, OTHER ==
[2017-02-12 10:58] LABS: ALT (SGPT) 25 U/L (8-55); AST (SGOT) 24 U/L (5-34); Albumin 4.1 g/dL (3.4-4.8); Alkaline Phosphatase 38 U/L (40-150); Anion Gap 16 mmol/L (10-20); BUN (Urea Nitrogen) 14 mg/dL (8.4-25.7); Bilirubin, Total 0.6 mg/dL (0.2-1.2); Calc. Creatinine Clearance 0 mL/min (70-130); Calcium 9.6 mg/dL (7.8-10.44); Carbon Dioxide 22 mmol/L (23-31); Cardiac Risk 4.3 (Less than 4.5); Chloride 102 mmol/L (98-107); Cholesterol 158 mg/dl (< 200 Desired); Estimated GFR-MDRD 65; Globulin 3.1 g/dL (2.4-3.5); Glucose 290 mg/dL (80-115); HDL Cholesterol 37 mg/dL (>60 Neg Risk); LDL Cholesterol, Calculated 57 mg/dL; Potassium 4.1 mmol/L (3.5-5.1); Protein, Total 7.2 g/dL (5.8-8.1); Sodium 136 mmol/L (136-145); Triglycerides 319 mg/dL (Less than 150)
== END 2017-02-12 09:15 | disposition home or self-care (01) ==
LOC: MADLAB 09:14
PROVIDERS: ATTEND Internal Medicine Cardiovascular Disease
DX: E78.00 Pure hypercholesterolemia, unspecified (principal)
CPT/HCPCS: 36415; 80053; 80061

== ENCOUNTER 2018-10-03 14:44 | Emergency (ER) | payer MEDICARE, OTHER ==
[2018-10-03] MEDS ORDERED: Ondansetron ODT 4 MG TAB ONE ×3 (15:17→16:21)
[2018-10-03] MEDS ORDERED: Acetaminophen 500 MG TAB ONE (15:58)
--- NOTE | 2018-10-03 16:40 | RAD ---
Radiograph chest 2 views: 10/03/2018 HISTORY: 67-year-old male with productive cough and chest pain COMPARISON: Single view study of 07/22/2016 FINDINGS: Again noted is the right subclavian dual-lead pacemaker. Cardiac size is at the upper limits of william l. No consolidation, pulmonary alveolar edema, pleural effusion, or pneumothorax. No significant inte rval change. IMPRESSION: No evidence of pneumonia
== END 2018-10-03 17:00 | disposition home or self-care (01) ==
LOC: MADERS 14:44
DX: S29.011A Strain of muscle and tendon of front wall of thorax, initial encounter (principal); J44.9 Chronic obstructive pulmonary disease, unspecified; I25.10 Atherosclerotic heart disease of native coronary artery without angina pectoris; E11.9 Type 2 diabetes mellitus without complications; Z79.4 Long term (current) use of insulin; Z79.82 Long term (current) use of aspirin; Z86.73 Personal history of transient ischemic attack (TIA), and cerebral infarction without residual deficits; Z79.899 Other long term (current) drug therapy; X58.XXXA Exposure to other specified factors, initial encounter
CPT/HCPCS: 71046; Q0162

== ENCOUNTER 2019-01-16 09:52 | Outpatient (CLI) | payer MEDICARE, OTHER ==
[2019-01-16] MEDS ORDERED: Iopamidol 370 76% 100 ML VIAL ONE (10:02)
[2019-01-16 12:04] LABS: Clarity Clear (Clear); Leukocyte Negative (Negative); Nitrite Negative (Negative)
[2019-01-16 12:05] LABS: Glucose, Urine (Dipstick) >=1000 mg/dL (Negative); Protein, Urine (Dipstick) > or equal to 300 mg/dL (Neg-Trace)
[2019-01-16 12:06] LABS: Bilirubin Negative (Negative); Blood, Urine Small (Negative); RBC/HPF 0-3 HPF (0-3); Urobilinogen 0.2 mg/dL (Less than 2)
[2019-01-16 12:08] LABS: Bacteria/HPF Rare-Few HPF (None Seen)
--- NOTE | 2019-01-16 14:41 | CT ---
CT abdomen and pelvis with IV contrast HISTORY: Prostate cancer. Initial staging. COMPARISON: 06/27/2013. FINDINGS: Old left lateral rib fractures. Lung bases are clear. Gallbladder is surgically absent. Spl een and kidneys are unremarkable. Calcification in the arterial structures. Nonspecific lymph nodes throughout the retroperitoneum. Degenerative changes lumbar spine. Postoperative changes of the prost ate bed. Urinary bladder is decompressed. IMPRESSION: No evidence of metastatic disease. Chronic-type findings are stable. Atherosclerosis.
== END 2019-01-16 09:53 | disposition home or self-care (01) ==
LOC: MADCT 09:52
PROVIDERS: ATTEND Urology
DX: C61 Malignant neoplasm of prostate (principal); M54.5 Low back pain; Z87.440 Personal history of urinary (tract) infections; I70.0 Atherosclerosis of aorta; M47.816 Spondylosis without myelopathy or radiculopathy, lumbar region
CPT/HCPCS: 36415; 74177; 81001; 82565; 87086; Q9967

== ENCOUNTER 2019-04-26 14:50 | Outpatient (CLI) | payer MEDICARE, OTHER ==
--- NOTE | 2019-04-26 15:12 | RAD ---
EXAM: Toes right foot: 3 views INDICATIONS: Injury to great toe COMPARISON: None. FINDINGS: Degenerative change at the first MTP joint and at the IP joint. There is evidence of nondisplaced fracture involving the medial cortex of the distal aspect of the fi rst metatarsal. IMPRESSION: Nondisplaced fracture distal first metatarsal
== END 2019-04-26 14:51 | disposition home or self-care (01) ==
LOC: MADRAD 14:50
PROVIDERS: ATTEND Nurse Practitioner Family
DX: M79.674 Pain in right toe(s) (principal); M79.671 Pain in right foot; S92.314A Nondisplaced fracture of first metatarsal bone, right foot, initial encounter for closed fracture

== ENCOUNTER 2019-05-17 08:50 | Outpatient (CLI) | payer MEDICARE, OTHER ==
--- NOTE | 2019-05-17 09:09 | CT ---
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 An old lacunar in farct is seen in the left cerebellar hemisphere. No evidence of acute infarct, hemorrhage, midline shift or abnormal extra-axial fluid collections is seen. The ventricular size is appropriate and the basilar cisterns are patent. The bony calvarium is intact. The visualized paranasal sinuses and mastoid air cells are well aerated. IMPRESSION: No CT evidence of acute intracranial process.
== END 2019-05-17 08:51 | disposition home or self-care (01) ==
LOC: MADCT 08:50
PROVIDERS: ATTEND Nurse Practitioner Family
DX: F03.90 Unspecified dementia, unspecified severity, without behavioral disturbance, psychotic disturbance, mood disturbance, and anxiety (principal); R29.6 Repeated falls; W19.XXXA Unspecified fall, initial encounter
CPT/HCPCS: 70450

== ENCOUNTER 2019-07-14 08:26 | Emergency (ER) | payer MEDICARE, OTHER ==
[2019-07-14] MEDS ORDERED: Sodium Chloride 0.9% 1,000 ML ONE (08:41)
[2019-07-14] MEDS ORDERED: Nitroglycerin 0.4 MG TAB 1 EACH ONE ×2 (08:41→10:00)
[2019-07-14 08:57] LABS: #Basophils 0.1 thou/uL (0.0-0.2); #Eosinphils 0.3 thou/uL (0.0-0.7); #Lymphocytes 2.4 thou/uL (1.20-3.40); #Monocytes 0.5 thou/uL (0.11-0.59); %Basophils 1.2 % (0.0-1.0); %Lymphocytes 32.7 % (21.0-51.0); %Neutrophils 55.1 % (42.0-75.0); Hemoglobin 16.9 g/dL (14.0-18.0); Mean Corpuscular HGB CONC 32.2 g/dL (32.0-36.0); Mean Corpuscular Hemoglobin 28.5 pg (27.0-31.0); Mean Corpuscular Volume 88.6 fL (78.0-98.0); Mean Platelet Volume 7.3 fL (7.4-10.4); Platelet Count 213 thou/uL (130-400); RBC Distribution Width 13.1 % (11.5-14.5); Red Blood Cell (RBC) Count 5.91 mill/uL (4.70-6.10); White Blood Cell (WBC) Count 7.3 thou/uL (4.8-10.8)
[2019-07-14 09:05] LABS: PTT 25.1 SEC (22.9-36.1); Prothrombin Time 13.3 SEC (12.0-14.7)
[2019-07-14 09:11] LABS: ALT (SGPT) 23 U/L (8-55); AST (SGOT) 21 U/L (5-34); Albumin 4.2 g/dL (3.4-4.8); Anion Gap 15 mmol/L (10-20); BUN (Urea Nitrogen) 16 mg/dL (8.4-25.7); Bilirubin, Total 0.6 mg/dL (0.2-1.2); Calc. Creatinine Clearance 0 mL/min (70-130); Calcium 9.6 mg/dL (7.8-10.44); Carbon Dioxide 21 mmol/L (23-31); Chloride 108 mmol/L (98-107); Estimated GFR-MDRD 71; Globulin 2.9 g/dL (2.4-3.5); Glucose 113 mg/dL (80-115); Potassium 3.9 mmol/L (3.5-5.1); Protein, Total 7.1 g/dL (5.8-8.1); Sodium 140 mmol/L (136-145)
[2019-07-14 09:24] LABS: Alkaline Phosphatase 41 U/L (40-110)
--- NOTE | 2019-07-14 09:58 | RAD ---
PORTABLE CHEST: Date: 07/14/2019 PROVIDED CLINICAL HISTORY: Chest pain. FINDINGS: Comparison with 10/03/2018. Evaluation is limited by patient body habitus. Cardiac silhouette remains enlarged. Right subclavian cardiac pacing device is again seen with lead tips in similar positions. No focal consolidation, larg e effusion, or pneumothorax evident. IMPRESSION: Limited examination without evidence for an acute cardiopulmonary process. POS: OFF
== END 2019-07-14 10:13 | disposition short-term general hospital (02) ==
LOC: MADERS 08:26
DX: R07.9 Chest pain, unspecified (principal); I25.10 Atherosclerotic heart disease of native coronary artery without angina pectoris; J44.9 Chronic obstructive pulmonary disease, unspecified; E11.9 Type 2 diabetes mellitus without complications; Z87.891 Personal history of nicotine dependence; Z95.818 Presence of other cardiac implants and grafts; Z79.82 Long term (current) use of aspirin; Z79.4 Long term (current) use of insulin; Z79.899 Other long term (current) drug therapy
CPT/HCPCS: 71045; 80053; 83880; 84484; 85025; 85610; 85730; 93005; 94760; 96360; J7050

== ENCOUNTER 2019-11-29 11:02 | Outpatient (CLI) | payer MEDICARE, OTHER ==
[2019-11-29 11:55] LABS: Bilirubin Negative (Negative); Blood, Urine Negative (Negative); Clarity Clear (Clear); Glucose, Urine (Dipstick) 100 mg/dL (Negative); Leukocyte Negative (Negative); Nitrite Negative (Negative); Protein, Urine (Dipstick) > or equal to 300 mg/dL (Neg-Trace); Urobilinogen 0.2 mg/dL (Less than 2)
[2019-11-29 12:00] LABS: Bacteria/HPF Rare-Few HPF (None Seen); RBC/HPF 0-3 HPF (0-3); Squamous Epithelial 0-3 HPF (0-3); WBC/HPF 0-3 HPF (0-3)
[2019-11-29 12:03] LABS: Anion Gap 16 mmol/L (10-20); BUN (Urea Nitrogen) 13 mg/dL (8.4-25.7); Calc. Creatinine Clearance 0 mL/min (70-130); Carbon Dioxide 24 mmol/L (23-31); Chloride 104 mmol/L (98-107); Estimated GFR-MDRD 63; Glucose 142 mg/dL (83-110); Potassium 4.4 mmol/L (3.5-5.1); Sodium 140 mmol/L (136-145)
== END 2019-11-29 11:03 | disposition home or self-care (01) ==
LOC: MADLAB 11:02
PROVIDERS: ATTEND Urology
DX: C61 Malignant neoplasm of prostate (principal); R81 Glycosuria; R39.15 Urgency of urination; R31.29 Other microscopic hematuria
CPT/HCPCS: 36415; 80048; 81001; 84153; 87086

== ENCOUNTER 2020-10-04 12:47 | Outpatient (CLI) | payer MEDICARE, OTHER ==
[2020-10-04 13:19] LABS: ALT (SGPT) 37 U/L (8-55); AST (SGOT) 35 U/L (5-34); Albumin 4.1 g/dL (3.4-4.8); Alkaline Phosphatase 40 U/L (40-110); Anion Gap 17 mmol/L (10-20); BUN (Urea Nitrogen) 16 mg/dL (8.4-25.7); Bilirubin, Total 0.7 mg/dL (0.2-1.2); Calc. Creatinine Clearance 0 mL/min (70-130); Calcium 9.5 mg/dL (7.8-10.44); Carbon Dioxide 22 mmol/L (23-31); Chloride 104 mmol/L (98-107); Globulin 2.6 g/dL (2.4-3.5); Glucose 232 mg/dL (83-110); Potassium 4.5 mmol/L (3.5-5.1); Protein, Total 6.7 g/dL (5.8-8.1); Sodium 138 mmol/L (136-145)
[2020-10-07 14:16] LABS: Cardiac Risk 4.6 (Less than 4.5)
== END 2020-10-04 12:48 | disposition home or self-care (01) ==
LOC: MADLAB 12:47
PROVIDERS: ATTEND Internal Medicine Cardiovascular Disease
DX: E78.00 Pure hypercholesterolemia, unspecified (principal)
CPT/HCPCS: 80053; 80061

== ENCOUNTER 2021-06-17 11:33 | Inpatient (IN) | payer MEDICARE, OTHER ==
[2021-06-17 13:04] LABS: SARS-CoV-2 NAA Rapid Test Not Detected (NotDetected)
[2021-06-17] MEDS ORDERED: ALPRAZolam 0.25 MG TAB PO PRN (13:38)
[2021-06-17] MEDS ORDERED: Albuterol Sulfate 1.25 MG/3 ML NEB INH PRN (13:53)
[2021-06-17] MEDS ORDERED: Mometasone 100 MCG/PUFF (1 INHALER) INH PRN (13:58)
[2021-06-17] MEDS ORDERED: Dextrose 50% Abboject 50 ML SYRINGE IVP PRN (15:45)
[2021-06-17] MEDS ORDERED: Dextrose 5% in Water 1,000 ML IV PRN (15:45)
[2021-06-17] MEDS: Dronedarone HCl 400 MG TAB PO SCH (15:59)
[2021-06-17] MEDS: HumaLOG 300 UNITS/3 ML VIAL SC PRN (16:54)
[2021-06-17] MEDS: Rosuvastatin 10 MG TAB PO SCH (21:29)
[2021-06-17] MEDS: Ezetimibe 10 MG TAB PO SCH (21:29)
[2021-06-17] MEDS: Linezolid 600 MG TAB PO SCH (21:30)
[2021-06-17] MEDS: HumuLIN 70/30 (300 UNITS/3 ML VIAL) SC SCH (21:57)
[2021-06-18 06:04] LABS: #Basophils 0.1 thou/uL (0.0-0.2); #Eosinphils 0.8 thou/uL (0.0-0.7); #Monocytes 0.7 thou/uL (0.11-0.59); #Neutrophils 8.2 thou/uL (1.40-6.50); %Basophils 0.9 % (0.0-1.0); %Eosinophils 6.7 % (0.0-10.0); %Lymphocytes 17.1 % (21.0-51.0); %Monocytes 5.9 % (0.0-10.0); %Neutrophils 69.4 % (42.0-75.0); Mean Corpuscular HGB CONC 33.7 g/dL (32.0-36.0); Mean Corpuscular Hemoglobin 29.7 pg (27.0-31.0); Mean Corpuscular Volume 88.3 fL (78.0-98.0); Mean Platelet Volume 6.2 fL (7.4-10.4); Platelet Count 362 thou/uL (130-400); RBC Distribution Width 12.8 % (11.5-14.5); Red Blood Cell (RBC) Count 5.04 mill/uL (4.70-6.10); White Blood Cell (WBC) Count 11.8 thou/uL (4.8-10.8)
[2021-06-18 06:12] LABS: Anion Gap 14 mmol/L (10-20); BUN (Urea Nitrogen) 55 mg/dL (8.4-25.7); Calc. Creatinine Clearance 50 mL/min (70-130); Calcium 9.6 mg/dL (7.8-10.44); Carbon Dioxide 24 mmol/L (23-31); Chloride 100 mmol/L (98-107); Glucose 230 mg/dL (83-110); Potassium 4.4 mmol/L (3.5-5.1); Sodium 134 mmol/L (136-145)
[2021-06-18] MEDS: Ondansetron ODT 4 MG TAB PO PRN (08:09)
[2021-06-18] MEDS: Fish Oil 1,000 MG CAP PO SCH (08:10)
[2021-06-18] MEDS: FLUoxetine HCl 20 MG CAP PO SCH (08:10)
[2021-06-18] MEDS: Aspirin 325 MG TAB PO SCH (08:10)
[2021-06-18] MEDS: Dronedarone HCl 400 MG TAB PO SCH ×2 (08:10→16:59)
[2021-06-18] MEDS: Linezolid 600 MG TAB PO SCH ×2 (08:10→20:35)
[2021-06-18] MEDS: HumuLIN 70/30 (300 UNITS/3 ML VIAL) SC SCH ×2 (08:11→20:35)
[2021-06-18] MEDS: HumaLOG 300 UNITS/3 ML VIAL SC PRN ×3 (08:12→17:03)
[2021-06-18] MEDS ORDERED: Empagliflozin 10 MG TAB PO SCH (09:00)
[2021-06-18] MEDS ORDERED: Losartan 25 MG TAB PO SCH (09:00)
[2021-06-18] MEDS: Rosuvastatin 10 MG TAB PO SCH (20:35)
[2021-06-18] MEDS: Ezetimibe 10 MG TAB PO SCH (20:35)
[2021-06-19] MEDS: Dronedarone HCl 400 MG TAB PO SCH ×2 (07:51→16:32)
[2021-06-19] MEDS: Fish Oil 1,000 MG CAP PO SCH (08:46)
[2021-06-19] MEDS: Aspirin 325 MG TAB PO SCH (08:46)
[2021-06-19] MEDS: FLUoxetine HCl 20 MG CAP PO SCH (08:47)
[2021-06-19] MEDS: Linezolid 600 MG TAB PO SCH ×2 (08:48→20:32)
[2021-06-19] MEDS: HumuLIN 70/30 (300 UNITS/3 ML VIAL) SC SCH ×2 (08:48→20:39)
[2021-06-19] MEDS: HumaLOG 300 UNITS/3 ML VIAL SC PRN ×3 (08:50→16:32)
[2021-06-19] MEDS: Ezetimibe 10 MG TAB PO SCH (20:30)
[2021-06-19] MEDS: Rosuvastatin 10 MG TAB PO SCH (20:30)
[2021-06-20] MEDS: Dronedarone HCl 400 MG TAB PO SCH ×2 (09:02→17:25)
[2021-06-20] MEDS: Fish Oil 1,000 MG CAP PO SCH (09:02)
[2021-06-20] MEDS: FLUoxetine HCl 20 MG CAP PO SCH (09:06)
[2021-06-20] MEDS: Linezolid 600 MG TAB PO SCH ×2 (09:06→21:30)
[2021-06-20] MEDS: Aspirin 325 MG TAB PO SCH (09:07)
[2021-06-20] MEDS: HumuLIN 70/30 (300 UNITS/3 ML VIAL) SC SCH ×2 (09:10→21:51)
[2021-06-20] MEDS ORDERED: Midodrine HCl 2.5 MG TAB PO SCH (09:50)
[2021-06-20] MEDS: HumaLOG 300 UNITS/3 ML VIAL SC PRN (13:30)
[2021-06-20] MEDS: Midodrine HCl 2.5 MG TAB PO SCH ×2 (15:25→21:30)
[2021-06-20] MEDS: Rosuvastatin 10 MG TAB PO SCH (21:30)
[2021-06-20] MEDS: Ezetimibe 10 MG TAB PO SCH (21:30)
[2021-06-21] MEDS: Dronedarone HCl 400 MG TAB PO SCH ×2 (09:03→17:19)
[2021-06-21] MEDS: Fish Oil 1,000 MG CAP PO SCH (09:04)
[2021-06-21] MEDS: Midodrine HCl 2.5 MG TAB PO SCH ×3 (09:04→21:21)
[2021-06-21] MEDS: Aspirin 325 MG TAB PO SCH (09:04)
[2021-06-21] MEDS: Linezolid 600 MG TAB PO SCH ×2 (09:04→21:21)
[2021-06-21] MEDS: FLUoxetine HCl 20 MG CAP PO SCH (09:04)
[2021-06-21] MEDS: HumuLIN 70/30 (300 UNITS/3 ML VIAL) SC SCH ×2 (09:11→21:20)
[2021-06-21] MEDS: HumaLOG 300 UNITS/3 ML VIAL SC PRN (17:20)
[2021-06-21] MEDS: Ezetimibe 10 MG TAB PO SCH (21:21)
[2021-06-21] MEDS: Rosuvastatin 10 MG TAB PO SCH (21:21)
[2021-06-22] MEDS: Ondansetron ODT 4 MG TAB PO PRN (04:56)
[2021-06-22] MEDS: Dronedarone HCl 400 MG TAB PO SCH ×2 (08:32→15:55)
[2021-06-22] MEDS: Midodrine HCl 2.5 MG TAB PO SCH ×3 (08:33→20:44)
[2021-06-22] MEDS: Linezolid 600 MG TAB PO SCH ×2 (08:33→20:43)
[2021-06-22] MEDS: Aspirin 325 MG TAB PO SCH (08:33)
[2021-06-22] MEDS: FLUoxetine HCl 20 MG CAP PO SCH (08:33)
[2021-06-22] MEDS: Fish Oil 1,000 MG CAP PO SCH (08:33)
[2021-06-22] MEDS: HumuLIN 70/30 (300 UNITS/3 ML VIAL) SC SCH ×2 (08:33→21:29)
[2021-06-22] MEDS ORDERED: Senokot S 8.6-50 MG TAB PO PRN (08:54)
[2021-06-22] MEDS ORDERED: Milk Of Magnesia 30 ML UDCUP PO PRN (12:37)
[2021-06-22] MEDS: Polyethylene Glycol 3350 17 GM Packet PER TUBE SCH (15:55)
[2021-06-22] MEDS: Rosuvastatin 10 MG TAB PO SCH (20:43)
[2021-06-22] MEDS: Ezetimibe 10 MG TAB PO SCH (20:44)
[2021-06-23] MEDS: Midodrine HCl 2.5 MG TAB PO SCH ×3 (08:18→18:02)
[2021-06-23] MEDS: Fish Oil 1,000 MG CAP PO SCH (08:18)
[2021-06-23] MEDS: Polyethylene Glycol 3350 17 GM Packet PER TUBE SCH (08:18)
[2021-06-23] MEDS: Dronedarone HCl 400 MG TAB PO SCH ×2 (08:18→16:29)
[2021-06-23] MEDS: HumaLOG 300 UNITS/3 ML VIAL SC PRN ×3 (08:19→17:29)
[2021-06-23] MEDS: Linezolid 600 MG TAB PO SCH ×2 (08:19→20:01)
[2021-06-23] MEDS: FLUoxetine HCl 20 MG CAP PO SCH (08:19)
[2021-06-23] MEDS: HumuLIN 70/30 (300 UNITS/3 ML VIAL) SC SCH ×2 (08:19→20:02)
[2021-06-23] MEDS: Aspirin 325 MG TAB PO SCH (08:19)
[2021-06-23] MEDS: traMADol HCl 50 MG TAB PO PRN (14:12)
[2021-06-23] MEDS: Ezetimibe 10 MG TAB PO SCH (20:01)
[2021-06-23] MEDS: Rosuvastatin 10 MG TAB PO SCH (20:01)
[2021-06-24] MEDS: traMADol HCl 50 MG TAB PO PRN (08:02)
[2021-06-24] MEDS: Fish Oil 1,000 MG CAP PO SCH (08:03)
[2021-06-24] MEDS: Aspirin 325 MG TAB PO SCH (08:03)
[2021-06-24] MEDS: Dronedarone HCl 400 MG TAB PO SCH ×2 (08:03→16:30)
[2021-06-24] MEDS: FLUoxetine HCl 20 MG CAP PO SCH (08:03)
[2021-06-24] MEDS: Linezolid 600 MG TAB PO SCH (08:03)
[2021-06-24] MEDS: HumuLIN 70/30 (300 UNITS/3 ML VIAL) SC SCH ×2 (08:03→20:51)
[2021-06-24] MEDS: Midodrine HCl 2.5 MG TAB PO SCH ×3 (08:04→20:07)
[2021-06-24] MEDS: Polyethylene Glycol 3350 17 GM Packet PER TUBE SCH (08:05)
[2021-06-24] MEDS: Semaglutide [Ozempic] 1 MG/0.75 ML Pen.Injctr SC SCH ×2 (08:06→11:08)
[2021-06-24] MEDS: HumaLOG 300 UNITS/3 ML VIAL SC PRN (16:57)
[2021-06-24 19:49] LABS: SARS-CoV-2 PCR by NAA Not Detected (NotDetected)
[2021-06-24] MEDS: Rosuvastatin 10 MG TAB PO SCH (20:06)
[2021-06-24] MEDS: Ezetimibe 10 MG TAB PO SCH (20:08)
[2021-06-25 05:21] LABS: #Basophils 0.1 thou/uL (0.0-0.2); #Eosinphils 0.9 thou/uL (0.0-0.7); #Lymphocytes 2.2 thou/uL (1.20-3.40); #Monocytes 0.7 thou/uL (0.11-0.59); #Neutrophils 6.5 thou/uL (1.40-6.50); %Basophils 1.1 % (0.0-1.0); %Eosinophils 8.5 % (0.0-10.0); %Lymphocytes 21.3 % (21.0-51.0); %Monocytes 6.7 % (0.0-10.0); %Neutrophils 62.5 % (42.0-75.0); Hemoglobin 13.6 g/dL (14.0-18.0); Mean Corpuscular HGB CONC 33.9 g/dL (32.0-36.0); Mean Corpuscular Hemoglobin 29.8 pg (27.0-31.0); Mean Platelet Volume 5.5 fL (7.4-10.4); Platelet Count 282 thou/uL (130-400); RBC Distribution Width 12.4 % (11.5-14.5); Red Blood Cell (RBC) Count 4.57 mill/uL (4.70-6.10); White Blood Cell (WBC) Count 10.4 thou/uL (4.8-10.8)
[2021-06-25 05:37] LABS: ALT (SGPT) 17 U/L (8-55); AST (SGOT) 19 U/L (5-34); Albumin 3.4 g/dL (3.4-4.8); Alkaline Phosphatase 43 U/L (40-110); Anion Gap 13 mmol/L (10-20); BUN (Urea Nitrogen) 25 mg/dL (8.4-25.7); Bilirubin, Total 0.7 mg/dL (0.2-1.2); Calc. Creatinine Clearance 49 mL/min (70-130); Calcium 9.9 mg/dL (7.8-10.44); Carbon Dioxide 23 mmol/L (23-31); Chloride 104 mmol/L (98-107); Globulin 3.1 g/dL (2.4-3.5); Glucose 72 mg/dL (83-110); Potassium 4.5 mmol/L (3.5-5.1); Protein, Total 6.5 g/dL (5.8-8.1); Sodium 135 mmol/L (136-145)
[2021-06-25] MEDS: Dronedarone HCl 400 MG TAB PO SCH ×2 (08:00→17:06)
[2021-06-25] MEDS: Midodrine HCl 2.5 MG TAB PO SCH ×3 (08:00→20:43)
[2021-06-25] MEDS: HumuLIN 70/30 (300 UNITS/3 ML VIAL) SC SCH ×2 (08:00→20:46)
[2021-06-25] MEDS: FLUoxetine HCl 20 MG CAP PO SCH (08:00)
[2021-06-25] MEDS: Aspirin 325 MG TAB PO SCH (08:00)
[2021-06-25] MEDS: Polyethylene Glycol 3350 17 GM Packet PER TUBE SCH (08:00)
[2021-06-25] MEDS: Fish Oil 1,000 MG CAP PO SCH (08:00)
[2021-06-25] MEDS: Ondansetron ODT 4 MG TAB PO PRN (09:21)
[2021-06-25] MEDS: Rosuvastatin 10 MG TAB PO SCH (20:45)
[2021-06-25] MEDS: Ezetimibe 10 MG TAB PO SCH (20:54)
[2021-06-26] MEDS: HumuLIN 70/30 (300 UNITS/3 ML VIAL) SC SCH ×2 (08:27→20:57)
[2021-06-26] MEDS: Fish Oil 1,000 MG CAP PO SCH (08:28)
[2021-06-26] MEDS: Dronedarone HCl 400 MG TAB PO SCH ×2 (08:28→16:39)
[2021-06-26] MEDS: Midodrine HCl 2.5 MG TAB PO SCH ×3 (08:28→20:56)
[2021-06-26] MEDS: Aspirin 325 MG TAB PO SCH (08:28)
[2021-06-26] MEDS: FLUoxetine HCl 20 MG CAP PO SCH (08:28)
[2021-06-26] MEDS: Polyethylene Glycol 3350 17 GM Packet PER TUBE SCH (08:28)
[2021-06-26] MEDS: HumaLOG 300 UNITS/3 ML VIAL SC PRN (16:51)
[2021-06-26] MEDS: Rosuvastatin 10 MG TAB PO SCH (20:56)
[2021-06-26] MEDS: Ezetimibe 10 MG TAB PO SCH (20:57)
[2021-06-27] MEDS: Dronedarone HCl 400 MG TAB PO SCH ×2 (07:56→16:51)
[2021-06-27] MEDS: Aspirin 325 MG TAB PO SCH (07:59)
[2021-06-27] MEDS: Fish Oil 1,000 MG CAP PO SCH (07:59)
[2021-06-27] MEDS: Polyethylene Glycol 3350 17 GM Packet PER TUBE SCH (08:00)
[2021-06-27] MEDS: FLUoxetine HCl 20 MG CAP PO SCH (08:00)
[2021-06-27] MEDS: HumuLIN 70/30 (300 UNITS/3 ML VIAL) SC SCH ×2 (08:00→21:09)
[2021-06-27] MEDS: Midodrine HCl 2.5 MG TAB PO SCH ×3 (08:00→21:08)
[2021-06-27] MEDS ORDERED: Loratadine 10 MG TAB PO SCH (14:45)
[2021-06-27] MEDS: Rosuvastatin 10 MG TAB PO SCH (21:07)
[2021-06-27] MEDS: Ezetimibe 10 MG TAB PO SCH (21:08)
[2021-06-28] MEDS: Fish Oil 1,000 MG CAP PO SCH (08:19)
[2021-06-28] MEDS: Dronedarone HCl 400 MG TAB PO SCH ×2 (08:19→16:53)
[2021-06-28] MEDS: Aspirin 325 MG TAB PO SCH (08:19)
[2021-06-28] MEDS: FLUoxetine HCl 20 MG CAP PO SCH (08:20)
[2021-06-28] MEDS: Midodrine HCl 2.5 MG TAB PO SCH ×3 (08:21→21:01)
[2021-06-28] MEDS: Loratadine 10 MG TAB PO SCH (08:21)
[2021-06-28] MEDS: HumuLIN 70/30 (300 UNITS/3 ML VIAL) SC SCH ×2 (08:21→20:58)
[2021-06-28] MEDS: Polyethylene Glycol 3350 17 GM Packet PER TUBE SCH (08:22)
[2021-06-28] MEDS: HumaLOG 300 UNITS/3 ML VIAL SC PRN ×2 (11:51→16:54)
[2021-06-28] MEDS: Rosuvastatin 10 MG TAB PO SCH (21:01)
[2021-06-28] MEDS: Ezetimibe 10 MG TAB PO SCH (21:02)
[2021-06-29 05:34] LABS: #Basophils 0.1 thou/uL (0.0-0.2); #Eosinphils 1.1 thou/uL (0.0-0.7); #Lymphocytes 2.6 thou/uL (1.20-3.40); #Monocytes 1.1 thou/uL (0.11-0.59); #Neutrophils 5.8 thou/uL (1.40-6.50); %Eosinophils 9.9 % (0.0-10.0); %Lymphocytes 24.4 % (21.0-51.0); %Monocytes 10.1 % (0.0-10.0); %Neutrophils 54.5 % (42.0-75.0); Mean Corpuscular HGB CONC 35.3 g/dL (32.0-36.0); Mean Corpuscular Hemoglobin 30.8 pg (27.0-31.0); Mean Corpuscular Volume 87.3 fL (78.0-98.0); Mean Platelet Volume 5.7 fL (7.4-10.4); Platelet Count 208 thou/uL (130-400); RBC Distribution Width 12.5 % (11.5-14.5); Red Blood Cell (RBC) Count 4.23 mill/uL (4.70-6.10); White Blood Cell (WBC) Count 10.6 thou/uL (4.8-10.8)
[2021-06-29 05:51] LABS: Anion Gap 13 mmol/L (10-20); BUN (Urea Nitrogen) 14 mg/dL (8.4-25.7); Calc. Creatinine Clearance 109 mL/min (70-130); Carbon Dioxide 21 mmol/L (23-31); Chloride 107 mmol/L (98-107); Glucose 134 mg/dL (83-110); Potassium 4.4 mmol/L (3.5-5.1); Sodium 137 mmol/L (136-145)
[2021-06-29] MEDS: Polyethylene Glycol 3350 17 GM Packet PER TUBE SCH (08:26)
[2021-06-29] MEDS: FLUoxetine HCl 20 MG CAP PO SCH (08:29)
[2021-06-29] MEDS: Dronedarone HCl 400 MG TAB PO SCH ×2 (08:29→16:55)
[2021-06-29] MEDS: Fish Oil 1,000 MG CAP PO SCH (08:29)
[2021-06-29] MEDS: Aspirin 325 MG TAB PO SCH (08:29)
[2021-06-29] MEDS: HumuLIN 70/30 (300 UNITS/3 ML VIAL) SC SCH ×2 (08:30→21:09)
[2021-06-29] MEDS: Midodrine HCl 2.5 MG TAB PO SCH ×3 (08:31→21:10)
[2021-06-29] MEDS: Loratadine 10 MG TAB PO SCH (08:31)
[2021-06-29] MEDS: Rosuvastatin 10 MG TAB PO SCH (21:10)
[2021-06-29] MEDS: Ezetimibe 10 MG TAB PO SCH (21:10)
[2021-06-30] MEDS: Fish Oil 1,000 MG CAP PO SCH (08:24)
[2021-06-30] MEDS: Polyethylene Glycol 3350 17 GM Packet PER TUBE SCH (08:24)
[2021-06-30] MEDS: Dronedarone HCl 400 MG TAB PO SCH ×2 (08:24→17:04)
[2021-06-30] MEDS: Aspirin 325 MG TAB PO SCH (08:25)
[2021-06-30] MEDS: Loratadine 10 MG TAB PO SCH (08:25)
[2021-06-30] MEDS: FLUoxetine HCl 20 MG CAP PO SCH (08:25)
[2021-06-30] MEDS: Midodrine HCl 2.5 MG TAB PO SCH ×3 (08:25→20:57)
[2021-06-30] MEDS: HumuLIN 70/30 (300 UNITS/3 ML VIAL) SC SCH ×2 (08:28→20:57)
[2021-06-30] MEDS ORDERED: Semaglutide [Ozempic] 1 MG/0.75 ML Pen.Injctr SC SCH (09:00)
[2021-06-30 11:25] VITALS: BMI 33.3
[2021-06-30] MEDS: Ezetimibe 10 MG TAB PO SCH (20:57)
[2021-06-30] MEDS: Rosuvastatin 10 MG TAB PO SCH (20:58)
[2021-07-01 07:27] VITALS: TEMP 98.3
[2021-07-01] MEDS: Aspirin 325 MG TAB PO SCH (08:13)
[2021-07-01] MEDS: Polyethylene Glycol 3350 17 GM Packet PER TUBE SCH (08:13)
[2021-07-01] MEDS: Midodrine HCl 2.5 MG TAB PO SCH ×2 (08:14→15:09)
[2021-07-01] MEDS: Loratadine 10 MG TAB PO SCH (08:14)
[2021-07-01] MEDS: Dronedarone HCl 400 MG TAB PO SCH ×2 (08:14→16:52)
[2021-07-01] MEDS: Fish Oil 1,000 MG CAP PO SCH (08:14)
[2021-07-01] MEDS: FLUoxetine HCl 20 MG CAP PO SCH (08:14)
[2021-07-01] MEDS: HumaLOG 300 UNITS/3 ML VIAL SC PRN ×2 (08:16→13:08)
[2021-07-01] MEDS: HumuLIN 70/30 (300 UNITS/3 ML VIAL) SC SCH (08:22)
[2021-07-01 17:50] VITALS: BP 134/63
[2021-07-01 18:10] LABS: SARS-CoV-2 PCR by NAA Not Detected (NotDetected)
[2021-07-01] MEDS ORDERED: Midodrine HCl 2.5 MG TAB PO SCH (21:00)
== END 2021-07-01 16:55 | disposition home or self-care (01) | DRG 948 ==
LOC: MADMS 11:33
PROVIDERS: ADMIT Family Medicine; ATTEND Family Medicine
DX: R53.81 Other malaise (principal); E87.1 Hypo-osmolality and hyponatremia; I25.810 Atherosclerosis of coronary artery bypass graft(s) without angina pectoris; D62 Acute posthemorrhagic anemia; N18.4 Chronic kidney disease, stage 4 (severe); J90 Pleural effusion, not elsewhere classified; K92.1 Melena; E78.5 Hyperlipidemia, unspecified; G47.33 Obstructive sleep apnea (adult) (pediatric); K21.9 Gastro-esophageal reflux disease without esophagitis; M10.9 Gout, unspecified; E66.9 Obesity, unspecified; F32.A Depression, unspecified; F41.9 Anxiety disorder, unspecified; E11.22 Type 2 diabetes mellitus with diabetic chronic kidney disease; I13.10 Hypertensive heart and chronic kidney disease without heart failure, with stage 1 through stage 4 chronic kidney disease, or unspecified chronic kidney disease; I95.1 Orthostatic hypotension; I48.0 Paroxysmal atrial fibrillation; Z88.8 Allergy status to other drugs, medicaments and biological substances; Z95.1 Presence of aortocoronary bypass graft; Z79.82 Long term (current) use of aspirin; Z79.899 Other long term (current) drug therapy; Z79.4 Long term (current) use of insulin; Z95.0 Presence of cardiac pacemaker; Z86.73 Personal history of transient ischemic attack (TIA), and cerebral infarction without residual deficits; Z95.5 Presence of coronary angioplasty implant and graft; Z90.49 Acquired absence of other specified parts of digestive tract; Z68.33 Body mass index [BMI] 33.0-33.9, adult; Z20.822 Contact with and (suspected) exposure to COVID-19
CPT/HCPCS: 36415; 36416; 71046; 80048; 80053; 83036; 85025; J1815; Q0162; U0002; U0003; U0005

== ENCOUNTER 2024-02-14 15:50 | Inpatient (IN) | payer OTHER, MEDICARE ==
[2024-02-14 17:03] VITALS: BMI 28.1
[2024-02-14] MEDS ORDERED: Albuterol 200 PUFF (6.7GM INHALER) INH PRN (18:29)
[2024-02-14] MEDS ORDERED: Nitroglycerin 0.4 MG TAB (25 Tab Bottle) SL PRN (18:29)
[2024-02-14] MEDS ORDERED: Diclofenac 1% 100 GM Topical GEL TP PRN (18:29)
[2024-02-14] MEDS ORDERED: Acetaminophen 500 MG TAB PO PRN (18:29)
[2024-02-14] MEDS ORDERED: Glucagon 1 MG/ML KIT IM PRN (19:37)
[2024-02-14] MEDS ORDERED: Dextrose 50% Abboject 50 ML SYRINGE SLOW IVP PRN (19:37)
[2024-02-14] MEDS ORDERED: CEFPODOXIME PROXETIL 200 MG PO SCH (21:00)
[2024-02-14] MEDS: Benzonatate 100 MG CAP PO PRN (21:35)
[2024-02-14] MEDS: Amiodarone 200 MG TAB PO SCH (21:35)
[2024-02-14] MEDS: Rosuvastatin 10 MG TAB PO SCH (21:36)
[2024-02-14] MEDS: Mometasone 200 MCG/Formoterol 5 MCG 60 PUFF INHALER INH SCH (21:38)
[2024-02-14] MEDS: HumaLOG 300 UNITS/3 ML VIAL SC PRN (21:43)
[2024-02-14] MEDS: cefTRIAXone\\ROCEPHIN 2 GM in Sodium Chloride 0.9% 100 ML IVPB SCH (22:00)
[2024-02-15] MEDS: Cyanocobalamin (Vitamin B-12) 1,000 MCG TAB PO SCH (08:47)
[2024-02-15] MEDS: Fish Oil 1,000 MG CAP PO SCH (08:47)
[2024-02-15] MEDS: Pantoprazole DR 40 MG TAB PO SCH (08:48)
[2024-02-15] MEDS: FLUoxetine HCl 20 MG CAP PO SCH (08:48)
[2024-02-15] MEDS: Loratadine 10 MG TAB PO SCH (08:48)
[2024-02-15] MEDS: Ezetimibe 10 MG TAB PO SCH (08:48)
[2024-02-15] MEDS: Lantus 1000 UNITS/10 ML VIAL SC SCH (08:48)
[2024-02-15] MEDS: Cholecalciferol 1,000 UNITS (25 MCG) TAB PO SCH (08:48)
[2024-02-15] MEDS: Losartan 50 MG TAB PO SCH (08:48)
[2024-02-15] MEDS: Lidocaine 4% Patch TD SCH (08:49)
[2024-02-15] MEDS: Enoxaparin 40 MG (0.4 mL) SYRINGE SC SCH (08:50)
[2024-02-15] MEDS: Clopidogrel Bisulfate 75 MG TAB PO SCH (08:50)
[2024-02-15] MEDS: Aspirin 81 mg Enteric Coated Tablet PO SCH (08:51)
[2024-02-15 10:57] VITALS: BMI 28.1
[2024-02-15] MEDS: Transdermal Patch Removal TOP SCH (21:29)
[2024-02-21 04:58] LABS: #Basophils 0.1 thou/uL (0.0-0.2); #Eosinphils 0.4 thou/uL (0.0-0.7); #Lymphocytes 2.5 thou/uL (1.20-3.40); #Monocytes 0.5 thou/uL (0.11-0.59); #Neutrophils 5.2 thou/uL (1.40-6.50); %Basophils 1.2 % (0.0-1.0); %Eosinophils 4.3 % (0.0-10.0); %Lymphocytes 28.8 % (21.0-51.0); %Monocytes 6.2 % (0.0-10.0); %Neutrophils 59.5 % (42.0-75.0); Mean Corpuscular HGB CONC 32.4 g/dL (32.0-36.0); Mean Corpuscular Hemoglobin 28.9 pg (27.0-31.0); Mean Corpuscular Volume 88.9 fl (78.0-98.0); Platelet Count 232 10x3/uL (130-400); RBC Distribution Width 13.7 % (11.5-14.5); White Blood Cell (WBC) Count 8.7 10x3/uL (4.8-10.8)
[2024-02-24] MEDS: Docusate 100 MG CAP PO PRN (08:27)
[2024-02-26 07:28] VITALS: BP 118/77; TEMP 98
== END 2024-02-26 12:20 | disposition home health service (06) | DRG 945 ==
LOC: MADMS 15:50
PROVIDERS: ADMIT Family Medicine; ATTEND Family Medicine
PROC: F07Z9ZZ Gait Training/Functional Ambulation Treatment (ICD-10-PCS; principal; 2024-02-22)
DX: R53.81 Other malaise (principal); I69.351 Hemiplegia and hemiparesis following cerebral infarction affecting right dominant side; E78.5 Hyperlipidemia, unspecified; I25.10 Atherosclerotic heart disease of native coronary artery without angina pectoris; I48.91 Unspecified atrial fibrillation; J44.9 Chronic obstructive pulmonary disease, unspecified; I10 Essential (primary) hypertension; Z66 Do not resuscitate; M50.20 Other cervical disc displacement, unspecified cervical region; Z79.02 Long term (current) use of antithrombotics/antiplatelets; Z95.1 Presence of aortocoronary bypass graft; Z79.82 Long term (current) use of aspirin; E11.9 Type 2 diabetes mellitus without complications; Z88.8 Allergy status to other drugs, medicaments and biological substances; Z91.041 Radiographic dye allergy status; Z91.018 Allergy to other foods; Z88.5 Allergy status to narcotic agent; Z79.899 Other long term (current) drug therapy; Z79.4 Long term (current) use of insulin; Z79.51 Long term (current) use of inhaled steroids; Z90.49 Acquired absence of other specified parts of digestive tract; Z95.0 Presence of cardiac pacemaker
CPT/HCPCS: 36415; 36416; 85025; 94664; J0696; J1650; J1815

== ENCOUNTER 2024-03-28 14:10 | Emergency (ER) | payer MEDICARE, OTHER ==
[2024-03-28 16:13] LABS: Bilirubin Negative (Negative); Blood, Urine Negative (Negative); Glucose, Urine (Dipstick) 100 mg/dL (Negative); Ketone, Urine Negative (Negative); Leukocyte Small (Negative); Nitrite Negative (Negative); Protein, Urine (Dipstick) 30 mg/dL (Neg-Trace); Specific Gravity, Urine 1.015 (1.005-1.030); Urobilinogen 0.2 mg/dL (Less than 2); pH, Urine 5.5 (5.0-9.0)
[2024-03-28 16:18] LABS: Clarity Hazy (Clear)
[2024-03-28 16:19] LABS: Bacteria/HPF 1+ HPF (None Seen); CAUTI Indications for Culture Dysuria,urgency,freq; RBC/HPF 0-3 HPF (0-3); Squamous Epithelial 0-3 HPF (0-3)
[2024-03-28 16:21] LABS: Urine Culture Reflex No No
[2024-03-28] MEDS ORDERED: Sulfameth/Trimethoprim DS 800-160mg TAB ONE (16:30)
== END 2024-03-28 16:39 | disposition home or self-care (01) ==
LOC: MADERS 14:10
DX: N39.0 Urinary tract infection, site not specified (principal); E11.65 Type 2 diabetes mellitus with hyperglycemia; J44.9 Chronic obstructive pulmonary disease, unspecified; Z79.4 Long term (current) use of insulin; Z87.891 Personal history of nicotine dependence; Z79.82 Long term (current) use of aspirin
CPT/HCPCS: 36416; 81001; 99284

== ENCOUNTER 2024-06-12 20:57 | Emergency (ER) | payer MEDICARE, OTHER ==
[2024-06-12 21:35] LABS: #Basophils 0.1 thou/uL (0.0-0.2); #Eosinophils 0.3 thou/uL (0.0-0.7); #Lymphocytes 2.4 thou/uL (1.20-3.40); #Monocytes 0.5 thou/uL (0.11-0.59); #Neutrophils 4.2 thou/uL (1.40-6.50); %Basophils 1.2 % (0.0-1.0); %Eosinophils 3.7 % (0.0-10.0); %Lymphocytes 32.5 % (21.0-51.0); %Monocytes 7.1 % (0.0-10.0); %Neutrophils 55.6 % (42.0-75.0); Hematocrit 43.1 % (42.0-52.0); Mean Corpuscular HGB CONC 34.7 g/dL (32.0-36.0); Mean Corpuscular Hemoglobin 30.6 pg (27.0-31.0); Platelet Count 211 10x3/uL (130-400); RBC Distribution Width 12.6 % (11.5-14.5); White Blood Cell (WBC) Count 7.5 10x3/uL (4.8-10.8)
[2024-06-12 21:46] LABS: Base Excess-Venous -2.6 mmol/L (-2.0 to 3.0); Bicarbonate (HCO3v) 22.3 mmol/L (22.0-28.0); CO2 Tension (PvCO2) 38.4 mmHg (42.0-51.0); Calcium, Ionized 1.26 mmol/L (1.15-1.33); Chloride 102 mmol/L (98-107); Hemoglobin - Calc 15.1 g/dL (14.0-18.0); Potassium 4.2 mmol/L (3.5-5.1); Sodium 136 mmol/L (138-145); T. Carbon Dioxide 23.5 mmol/L (22.0-28.0); vO2 Saturation-calc 80.7 % (60.0-85.0)
[2024-06-12 21:53] LABS: Phosphorus 3.1 mg/dL (2.3-4.7)
[2024-06-12 21:55] LABS: ALT (SGPT) 13 U/L (8-55); AST (SGOT) 10 U/L (5-34); Albumin 4.3 g/dL (3.4-4.8); Alkaline Phosphatase 41 U/L (40-110); Anion Gap 16 mmol/L (10-20); BUN (Urea Nitrogen) 22 mg/dL (8.4-25.7); Bilirubin, Total 0.5 mg/dL (0.2-1.2); Calc. Creatinine Clearance 0 mL/min (70-130); Calcium 9.6 mg/dL (7.8-10.44); Carbon Dioxide 19 mmol/L (23-31); Chloride 104 mmol/L (98-107); Estimated GFR 47; Globulin 2.8 g/dL (2.4-3.5); Glucose 313 mg/dL (83-110); Lipase 26 U/L (8-78); Magnesium 1.7 mg/dL (1.6-2.6); Potassium 4.2 mmol/L (3.5-5.1); Protein, Total 7.1 g/dL (5.8-8.1); Sodium 135 mmol/L (136-145)
[2024-06-12 21:58] LABS: Troponin I Less than 0.010 ng/mL (< 0.028)
[2024-06-12 23:30] LABS: Bacteria/HPF Rare-Few HPF (None Seen); Bilirubin Negative (Negative); Blood, Urine Trace (Negative); CAUTI Indications for Culture Alt mental st,lethar; Clarity Hazy (Clear); Glucose, Urine (Dipstick) >=1000 mg/dL (Negative); Ketone, Urine Negative (Negative); Leukocyte Small (Negative); Nitrite Negative (Negative); Protein, Urine (Dipstick) Trace mg/dL (Neg-Trace); RBC/HPF 0-3 HPF (0-3); Squamous Epithelial 0-3 HPF (0-3); Urobilinogen 0.2 mg/dL (Less than 2); WBC/HPF 21-50 HPF (0-3)
[2024-06-12 23:31] LABS: Urine Culture Reflex Yes Yes
[2024-06-12 23:32] LABS: Anion Gap 14 mmol/L (10-20); BUN (Urea Nitrogen) 21 mg/dL (8.4-25.7); Calc. Creatinine Clearance 0 mL/min (70-130); Calcium 8.7 mg/dL (7.8-10.44); Carbon Dioxide 18 mmol/L (23-31); Chloride 109 mmol/L (98-107); Estimated GFR 57; Glucose 299 mg/dL (83-110); Potassium 4.2 mmol/L (3.5-5.1); Sodium 137 mmol/L (136-145)
[2024-06-12] MEDS ORDERED: Nitrofurantoin Monohyd/M-Cryst 100 MG CAP ONE (23:44)
== END 2024-06-12 23:57 | disposition home or self-care (01) ==
LOC: MADERS 20:57
DX: E11.65 Type 2 diabetes mellitus with hyperglycemia (principal); N39.0 Urinary tract infection, site not specified; I25.10 Atherosclerotic heart disease of native coronary artery without angina pectoris; J44.9 Chronic obstructive pulmonary disease, unspecified; Z95.0 Presence of cardiac pacemaker; Z87.891 Personal history of nicotine dependence; Z79.82 Long term (current) use of aspirin; Z79.899 Other long term (current) drug therapy; Z79.4 Long term (current) use of insulin
CPT/HCPCS: 80053; 81001; 82010; 82330; 82435; 82803; 83690; 83735; 84100; 84132; 84295; 84484; 85014; 85025; 87077; 87086; 93005; 94760; 96360; 96361